=== PATIENT | male | born 1965 | race Caucasian/White ===

== ENCOUNTER 2019-12-07 14:23 | Inpatient (IN) ==
[2019-12-07] MEDS ORDERED: SODIUM CHLORIDE 0.9% 1000ML 1,000 ML IV ONE (14:33)
[2019-12-07] MEDS ORDERED: ONDANSETRON INJ 2 MG/ML 2 ML VIAL IV STA (14:33)
[2019-12-07] MEDS ORDERED: MoRPHine SULFATE 4 MG/ML 1 ML CARP\\VIAL IV STA ×2 (14:33→16:23)
--- NOTE | 2019-12-07 14:48 | Emergency Department Note ---
Impression & Plan Pancreatitis, Abdominal pain, Nausea ED Provider Note Provider: Naresh Dale MD DATE OF SERVICE: 12/07/2019 CHIEF COMPLAINT: Abdominal pain HISTORY OF PRESENT ILLNESS: Patient is a 54-year-old gentleman history of hyperlipidemia, pancreatitis, depression presenting here today onset yesterday of severe epigastric and upper abdominal pain with nausea. Denies vomiting or diarrhea. Denies fever. Denies trauma. Denies other chest pain or shortness of breath. Patient states this feels like a prior episode of pancreatitis. Was drinking alcohol 2 days ago. States he was able to eat a little bit of a sandwich but limited oral intake otherwise. No alcohol since. Pain is severe and does radiate to the back. Does have some pain with palpation of the upper abdomen according to him. REVIEW OF SYSTEMS: A total of 10 review of systems was obtained and negative except as stated above in the HPI. PAST MEDICAL HISTORY: As noted above MEDICATIONS: Reviewed home medication list. SOCIAL HISTORY: Non-smoker. Occasional alcohol PHYSICAL EXAM: GENERAL: alert and oriented appears uncomfortable on stretcher Head: normocephalic and atraumatic EYES: No injection, discharge or icterus. NECK: Trachea midline. Supple. ENT: Mucous membranes pink and moist. LUNGS: Airway patent. No retractions. Breath sounds clear HEART: Regular rate and rhythm. No chest wall tenderness ABDOMEN: Soft with epigastric tenderness. Not peritoneal. No lower abdominal tenderness. No bruising or contusions of the abdominal wall is noted. SKIN: Acyanotic, warm, dry, without rashes EXTREMITIES: Without swelling, tenderness or deformity NEUROLOGICAL: No focal deficits. No aphasia. No facial droop or slurred speech. EK bpm normal sinus rhythm. No PVC. No acute ST segment elevation or depression. Normal QTC. CONTINUOUS CARDIAC MONITORING: was ordered and showed a heart rate of 72 bpm in normal sinus rhythm Patient's hypertension was referred to the hospitalist HOSPITAL COURSE: 1439 Patient was first seen and H&P performed. 1612 Patient reassessed and updated. Patient was having some improvement of pain although it starting to return. Patient's laboratory studies and imaging reviewed. Differential includes Appendicitis, testicular torsion, infections, diverticulitis, UTI, obstruction, mesenteric ischemia, aortic pathology, inflammatory bowel disease, renal colic, PUD, pancreatitis, biliary pathology, hernia, volvulus, constipation, as well as other pathologies. IMPRESSION/MEDICAL DECISION MAKING: Patient presents here epigastric pain radiation back with nausea associated. History of pancreatitis. States feels similar. EKG and troponin were sent as basic labs. Lipase is mildly elevated. CT scan has findings consistent with acute pancreatitis. Also question of possible omental nodule versus infarct. Slight leukocytosis of 12.2 noted but afebrile. No sign of electrolyte abnormality. No evidence of AST or ALT elevation of the bilirubin slightly elevated 2.0. I doubt this is acutely infectious. Treated symptomatically with IV fluids, Zofran, and morphine. Patient had some improvement of symptoms. Discussed with findings. Recommended further observation in the hospital which he was agreeable to. DIAGNOSIS: Acute pancreatitis, nausea, upper abdominal pain DISPOSITION: Hospitalist will evaluate Patient was agreeable with this plan. Past Med/Surg History Social History Smoking Status: Former smoker Preferred Language: Scottish Feels Safe at Home: Yes Allergies Allergies Allergy/AdvReac Type Severity Reaction Status Date / Time cyclobenzaprine AdvReac Mild constipatio Verified 12/07/19 15:24 n Home Meds Home Medications Medication Instructions Recorded Confirmed atorvastatin 20 mg PO DAILY 12/07/19 12/07/19 escitalopram oxalate [Lexapro] 20 mg PO DAILY 12/07/19 12/07/19 lamotrigine [Lamictal] 25 mg PO UD 12/07/19 12/07/19 prednisolone acetate [Pred Forte] 1 drp OPB DAILY 12/07/19 12/07/19 Results & Data (ED) Vital Signs Vital Signs - 24 hr 12/07/19 14:27 12/07/19 15:57 12/07/19 17:06 Temperature 37.2 C Temperature Source Oral Pulse Rate 74 Pulse Rate [Left Finger] 68 63 Respiratory Rate 20 20 20 Respiratory Effort / Characteristics Non-Labored Spontaneous Respiratory Depth Normal Respiratory Pattern Regular Blood Pressure 187/96 H Blood Pressure [Right Arm] 173/88 H 176/92 H Blood Pressure Mean 126 Blood Pressure Mean [Right Arm] 116 120 Pulse Oximetry 97 96 97 Oxygen Delivery Method Room Air Sepsis Recent Fever Within 48 Hours No Sepsis New/Unexplained Change in Mental Status No Sepsis Action Taken by Nursing No Action Required Laboratory Data Result diagrams: 12/07/19 15:00 12/07/19 15:00 Lab Results 08/21/20 08/21/20 08/21/20 Range/Units 15:00 15:00 15:00 WBC 12.20 H (4.8-10.8) K/uL RBC 4.98 (4.7-6.1) M/uL Hgb 15.8 (14.0-18.0) g/dL Hct 45.0 (42-52) % MCV 90.4 (80-100) fL MCH 31.7 (25-34) pg MCHC 35.3 (32-36) g/dL RDW Std Deviation 43.2 (36.4-46.3) fL RDW Coeff of Reginald 13.3 (11.5-14.5) % Plt Count 178 (130-400) K/uL MPV 9.6 (7.4-10.4) fL Immature Gran % (Auto) 0.2 % Neut % (Auto) 77.7 % Lymph % (Auto) 11.7 % [place] % (Auto) 8.8 % Eos % (Auto) 1.4 % Baso % (Auto) 0.2 % Neut # (Auto) 9.48 H (1.4-6.5) K/uL Lymph # (Auto) 1.43 (1.2-3.4) K/uL [place] # (Auto) 1.07 H (0.11-0.59) K/uL Eos # (Auto) 0.17 (0-0.5) K/uL Baso # (Auto) 0.02 (0-0.2) K/uL Immature Gran # (Auto) 0.03 H (0.00-0.02) K/uL PT 11.7 (9.0-12.0) Seconds INR 1.1 (0.9-1.1) APTT 27.4 (21.0-31.0) Seconds PTT Ratio 1.0 Sodium 138 (136-145) mmol/L Potassium 3.7 (3.5-5.1) mmol/L Chloride 104 (98-107) mmol/L Carbon Dioxide 24 (21-32) mmol/L Anion Gap 10.0 (3-11) BUN 15 (7-18) mg/dl Creatinine 1.18 (0.6-1.4) mg/dl Est Cr Clr Drug Dosing 89.0 ml/min Est GFR ( Amer) 81.2 Est GFR (Non-Af Amer) 70.0 BUN/Creatinine Ratio 12.8 (10-20) Glucose 108 H (70-99) mg/dl Calcium 9.7 (8.5-10.1) mg/dl Magnesium 2.3 (1.8-2.4) mg/dl Total Bilirubin 2.0 H (0.2-1) mg/dl Direct Bilirubin 0.4 H (0-0.2) mg/dl AST 26 (15-37) U/L ALT 35 (12-78) U/L Alkaline Phosphatase 115 (45-117) U/L Troponin I < 0.015 (0-0.045) ng/ml Total Protein 7.4 (6.4-8.2) gm/dl Albumin 4.5 (3.4-5.0) gm/dl Globulin 2.9 (2.5-4.0) gm/dl Albumin/Globulin Ratio 1.5 (0.9-2) Lipase 859 H (73-393) U/L Urine Color Urine Appearance (Clear) Urine pH (4.5-7.5) Ur Specific [place] (1.000-1.030) Urine Protein (Negative) Urine Glucose (UA) (Negative) Urine Ketones (Negative) Urine Blood (Negative) Urine Nitrite (Negative) Urine Bilirubin (Negative) Urine Urobilinogen (Negative) Ur Leukocyte Esterase (Negative) 12/07/19 Range/Units 16:02 WBC (4.8-10.8) K/uL RBC (4.7-6.1) M/uL Hgb (14.0-18.0) g/dL Hct (42-52) % MCV (80-100) fL MCH (25-34) pg MCHC (32-36) g/dL RDW Std Deviation (36.4-46.3) fL RDW Coeff of Reginald (11.5-14.5) % Plt Count (130-400) K/uL MPV (7.4-10.4) fL Immature Gran % (Auto) % Neut % (Auto) % Lymph % (Auto) % [place] % (Auto) % Eos % (Auto) % Baso % (Auto) % Neut # (Auto) (1.4-6.5) K/uL Lymph # (Auto) (1.2-3.4) K/uL [place] # (Auto) (0.11-0.59) K/uL Eos # (Auto) (0-0.5) K/uL Baso # (Auto) (0-0.2) K/uL Immature Gran # (Auto) (0.00-0.02) K/uL PT (9.0-12.0) Seconds INR (0.9-1.1) APTT (21.0-31.0) Seconds PTT Ratio Sodium (136-145) mmol/L Potassium (3.5-5.1) mmol/L Chloride (98-107) mmol/L Carbon Dioxide (21-32) mmol/L Anion Gap (3-11) BUN (7-18) mg/dl Creatinine (0.6-1.4) mg/dl Est Cr Clr Drug Dosing ml/min Est GFR ( Amer) Est GFR (Non-Af Amer) BUN/Creatinine Ratio (10-20) Glucose (70-99) mg/dl Calcium (8.5-10.1) mg/dl Magnesium (1.8-2.4) mg/dl Total Bilirubin (0.2-1) mg/dl Direct Bilirubin (0-0.2) mg/dl AST (15-37) U/L ALT (12-78) U/L Alkaline Phosphatase (45-117) U/L Troponin I (0-0.045) ng/ml Total Protein (6.4-8.2) gm/dl Albumin (3.4-5.0) gm/dl Globulin (2.5-4.0) gm/dl Albumin/Globulin Ratio (0.9-2) Lipase (73-393) U/L Urine Color Yellow Urine Appearance Clear (Clear) Urine pH 6.0 (4.5-7.5) Ur Specific [place] 1.027 (1.000-1.030) Urine Protein Negative (Negative) Urine Glucose (UA) Negative (Negative) Urine Ketones 1+ H (Negative) Urine Blood Negative (Negative) Urine Nitrite Negative (Negative) Urine Bilirubin Negative (Negative) Urine Urobilinogen Negative (Negative) Ur Leukocyte Esterase Negative (Negative) Administered Medications Discontinued Medications Sodium Chloride (Nss 1000ml) 1,000 mls @ 999 mls/hr IV .Q1H1M ONE Stop: 12/07/19 15:33 Last Infusion: 12/07/19 17:08 Dose: 0 mls/hr Documented by: [id number] Admin: 12/07/19 15:05 Dose: 999 mls/hr Documented by: [id number] Lactated Ringer's (Lr) 1,000 mls @ 999 mls/hr IV .Q1H1M ONE Stop: 12/07/19 17:23 Last Infusion: 12/07/19 19:23 Dose: 0 mls/hr Documented by: [id number] Admin: 12/07/19 17:04 Dose: 999 mls/hr Documented by: [id number] Ioversol (Ioversol 100ml) 92 ml IV ONCE ONE Stop: 12/07/19 15:47 Last Admin: 12/07/19 15:47 Dose: 92 ml Documented by: [id number] Morphine Sulfate (Morphine Sulfate 4 Mg/Ml 1 Ml Carp\Vial) 4 mg IV NOW STA Stop: 12/07/19 14:34 Last Admin: 12/07/19 15:05 Dose: 4 mg Documented by: [id number] Morphine Sulfate (Morphine Sulfate 4 Mg/Ml 1 Ml Carp\Vial) 4 mg IV NOW STA Stop: 12/07/19 16:24 Last Admin: 12/07/19 17:04 Dose: 4 mg Documented by: [id number] Morphine Sulfate (Morphine Sulfate 2 Mg/Ml Carp) 2 mg IV NOW STA Stop: 12/07/19 17:00 Last Admin: 12/07/19 17:30 Dose: 2 mg Documented by: [id number] Ondansetron HCl (Ondansetron Inj 2 Mg/Ml 2 Ml Vial) 4 mg IV NOW STA Stop: 12/07/19 14:34 Last Admin: 12/07/19 15:05 Dose: 4 mg Documented by: [id number] Discharge Plan Visit Data Chief Complaint: Abdominal Pain Stated Complaint: ABD PAIN ED Provider: Naresh Dale Discharge Problem: Pancreatitis, Abdominal pain, Nausea Patient Disposition: Admitted As Inpatient Discharge Instructions Interventions: ED Discharge Assessment Last Done: 12/07/19 18:19 Discharge Problem: Pancreatitis Qualifiers: Chronicity: acute Pancreatitis type: alcohol induced Acute pancreatitis complication: no infection or necrosis Qualified Code(s): K85.20 - Alcohol induced acute pancreatitis without necrosis or infection Abdominal pain Qualifiers: Abdominal location: upper abdomen, unspecified Qualified Code(s): R10.10 - Upper abdominal pain, unspecified
[2019-12-07 15:16] LABS: Mean Corpuscular Hgb Conc 35.3 g/dL (32-36); Mean Platelet Volume 9.6 fL (7.4-10.4); Platelet Count 178 K/uL (130-400)
[2019-12-07 15:28] LABS: INR 1.1 (0.9-1.1); Partial Thromboplastin Time 27.4 Seconds (21.0-31.0); Prothrombin Time 11.7 Seconds (9.0-12.0)
[2019-12-07 15:31] LABS: Hemoglobin 15.8 g/dL (14.0-18.0); Mean Corpuscular Hemoglobin 31.7 pg (25-34); Mean Corpuscular Volume 90.4 fL (80-100); RDW Coefficient of Variation 13.3 % (11.5-14.5); RDW Standard Deviation 43.2 fL (36.4-46.3); Red Blood Count 4.98 M/uL (4.7-6.1)
[2019-12-07 15:33] LABS: Albumin Level 4.5 gm/dl (3.4-5.0); Aspartate Aminotransferase 26 U/L (15-37); BUN Creatinine Ratio 12.8 (10-20); Blood Urea Nitrogen 15 mg/dl (7-18); Calcium 9.7 mg/dl (8.5-10.1); Carbon Dioxide 24 mmol/L (21-32); Chloride 104 mmol/L (98-107); Est GFR (African American) 81.2; Glucose 108 mg/dl (70-99); Lipase 859 U/L (73-393); Magnesium 2.3 mg/dl (1.8-2.4); Potassium 3.7 mmol/L (3.5-5.1); Sodium 138 mmol/L (136-145)
[2019-12-07 15:37] LABS: Basophils # (auto) 0.02 K/uL (0-0.2); Basophils % (auto) 0.2 %; Eosinophils # (auto) 0.17 K/uL (0-0.5); Eosinophils % (auto) 1.4 %; Immature Granulocytes # (auto) 0.03 K/uL (0.00-0.02); Immature Granulocytes % (auto) 0.2 %; Lymphocytes # (auto) 1.43 K/uL (1.2-3.4); Lymphocytes % (auto) 11.7 %; Monocytes # (auto) 1.07 K/uL (0.11-0.59); Monocytes % (auto) 8.8 %; Neutrophils # (auto) 9.48 K/uL (1.4-6.5); Neutrophils % (auto) 77.7 %
[2019-12-07 15:42] LABS: Alanine Aminotransferase 35 U/L (12-78); Albumin Globulin Ratio 1.5 (0.9-2); Alkaline Phosphatase 115 U/L (45-117); Globulin 2.9 gm/dl (2.5-4.0); Total Protein 7.4 gm/dl (6.4-8.2); Troponin I < 0.015 ng/ml (0-0.045)
[2019-12-07] MEDS ORDERED: IOVERSOL 100ml IV ONE (15:46)
--- NOTE | 2019-12-07 16:02 | CT Scan Report ---
ABDOMEN AND PELVIS CT WITH IV CONTRAST CT DOSE: 673.39 mGy.cm HISTORY: epigastric pain, ?pancreatitis TECHNIQUE: Multiaxial CT images of the abdomen and pelvis were performed following the use of intrave nous contrast. A dose lowering technique was utilized adhering to the principles of ALARA. COMPARISON STUDY: Abdomen and pelvis CT 12/10/2017. FINDINGS: The lung bases are clear. No pneumoperitoneum. No pneumatosis. The liver, spleen, adrenal g lands, and gallbladder are within normal limits. Mild inflammatory change surrounding the pancreatic head. This is consistent with acute pancreatitis. No evidence for pancreatic necrosis at this time. T he main portal vein remains patent. No retroperitoneal lymphadenopathy. Normal caliber abdominal aort a. Punctate bilateral renal calculi. No hydronephrosis. A 6 mm hypodense lesion within the left kidne y. This is too small to characterize but favors a cyst. The bladder is unremarkable. No bowel wall th ickening or obstruction. Normal appendix. Subtle groundglass nodularity along the left side of the om entum best seen on images 209 through 223. This measures up to 9 mm in thickness. IMPRESSION: 1. Above findings consistent with acute pancreatitis involving the pancreatic head. No evidence for n ecrosis at this time. 2. Bilateral nephrolithiasis. No hydronephrosis. 3. Subtle focus of nodularity along the left side of the omentum as described above. This is nonspeci fic and could represent a small focus of fat necrosis or omental infarct. 3 month abdomen and pelvis CT follow-up is recommended to ensure stability/resolution and exclude the less likely possibility of a peritoneal lesion. ACT 112: Negative or not required by law. Electronically signed by: Jayesh Mandujano M.D. 12/07/2019 4:01 PM
[2019-12-07] MEDS ORDERED: LACTATED RINGER'S 1,000 ML IV ONE (16:23)
--- NOTE | 2019-12-07 16:28 | Electrocardiogram Report ---
Test Reason : Blood Pressure : / mmHG Vent. Rate : 063 BPM Atrial Rate : 063 BPM P-R Int : 124 ms QRS Dur : 094 ms QT Int : 424 ms P-R-T Axes : 033 018 044 degrees QTc Int : 433 ms Normal sinus rhythm Normal ECG When compared with ECG of 10-DEC-2017 15:15, No significant change was found Confirmed by Aristides Hayden ([id number]) on 12/07/2019 4:28:22 PM Referred By: REFERRED SELF Confirmed By:Aristides Hayden
[2019-12-07 16:37] LABS: Appearance Urine Clear (Clear); Bilirubin Urine Negative (Negative); Blood Urine Negative (Negative); Color Urine Yellow; Glucose Urine UA Negative (Negative); Ketones Urine 1+ (Negative); Leukocyte Esterase Urine Negative (Negative); Nitrite Urine Negative (Negative); Protein Urine Negative (Negative); Specific Gravity Urine 1.027 (1.000-1.030); Urobilinogen Urine Negative (Negative)
[2019-12-07] MEDS ORDERED: MoRPHine SULFATE 2 MG/ML CARP IV STA (16:59)
[2019-12-07] MEDS ORDERED: ONDANSETRON INJ 2 MG/ML 2 ML VIAL IV PRN (17:00)
[2019-12-07] MEDS ORDERED: ACETAMINOPHEN 1,000 MG/100 ML VIAL IV PRN (17:01)
[2019-12-07] MEDS ORDERED: POLYETHYLENE (MIRALAX) 17 GM PACK PO PRN (17:01)
[2019-12-07] MEDS ORDERED: PROMETHAZINE HCL 6.25 MG in SODIUM CHLORIDE 0.9% 50 ML IV PRN (17:05)
--- NOTE | 2019-12-07 17:05 | History & Physical Report ---
Date of Service December 07, 2019 Assessment & Plan (1) Acute pancreatitis: -64-year-old male with history of hyperlipidemia, pancreatitis, depression presenting to ED with epigastric and upper abdominal pain with nausea that started 1 day ago. Patient reported alcohol use 2 days ago. -admission CT abdomen "FINDINGS: The lung bases are clear. No pneumoperitoneum. No pneumatosis. The liver, spleen, adrenal glands, and gallbladder are within normal limits. Mild inflammatory change surrounding the pancreatic head. This is consistent with acute pancreatitis. No evidence for pancreatic necrosis at this time. The main portal vein remains patent. No retroperitoneal lymphadenopathy. Normal caliber abdominal aorta. Punctate bilateral renal calculi. No hydronephrosis. A 6 mm hypodense lesion within the left kidney. This is too small to characterize but favors a cyst. The bladder is unremarkable. No bowel wall thickening or obstruction. Normal appendix. Subtle groundglass nodularity along the left side of the omentum best seen on images 209 through 223. This measures up to 9 mm in thickness. IMPRESSION: 1. Above findings consistent with acute pancreatitis involving the pancreatic head. No evidence for necrosis at this time. 2. Bilateral nephrolithiasis. No hydronephrosis. 3. Subtle focus of nodularity along the left side of the omentum as described above. This is nonspecific and could represent a small focus of fat necrosis or omental infarct. 3 month abdomen and pelvis CT follow-up is recommended to ensure stability/resolution and exclude the less likely possibility of a peritoneal lesion." -Lipase 859, trend the lipase -continue IV fluids as Lactated Ringer's -patient advised to minimize oral intake for now but can have clear liquid diet if hungry -prn pain medications, senna bowel regimen, prn anti-metics -hold home dose atorvastatin for now history of hyperlipidemia -hold home dose atorvastatin for now while on minimal diet Depression -continue home dose Lexapro Fuchs' corneal dystrophy -continue patient's eye drops of prednisolone DVT prophylaxis: SCDs, ambulation Full Code Status History of Present Illness 64-year-old male with history of hyperlipidemia, pancreatitis, depression presenting to ED with epigastric and upper abdominal pain with nausea that started 1 day ago. Patient reported alcohol use 2 days ago. Patient denies fevers, or vomiting. no chest pain. no shortness of breath. breathing on room air. no dizziness. he denies problems with bowel movements or urination on exam by hospitalist pain appears to be mostly right upper quadrant but CT abdomen imaging not showing gallbladder etiology Family History: patient reports family history of vision problems Primary Care Provider: Brady Palafox MD Allergies Allergy/AdvReac Type Severity Reaction Status Date / Time cyclobenzaprine AdvReac Mild constipatio Verified 12/07/19 15:24 n Home Medications Home Medications Medication Instructions Recorded Confirmed Type atorvastatin 20 mg PO DAILY 12/07/19 12/07/19 History escitalopram oxalate [Lexapro] 20 mg PO DAILY 12/07/19 12/07/19 History lamotrigine [Lamictal] 25 mg PO UD 12/07/19 12/07/19 History prednisolone acetate [Pred Forte] 1 drp OPB DAILY 12/07/19 12/07/19 History Past Med/Surg History Social History Smoking Status: Former smoker Preferred Language: Swazi Feels Safe at Home: Yes Review of Systems Review of Systems: All systems reviewed & are unremarkable except as noted in Subjective Physical Exam Constitutional: cooperative Eyes: PERRL, conjunctivae normal, anicteric sclerae EOM intact bilaterally ENMT: external ear and nose normal, oropharynx normal Neck: trachea midline, no thyromegaly normal visual inspection Respiratory: normal respiratory effort, lungs clear to auscultation normal respiratory effort Cardiovascular: Rate/Rhythm: regular rhythm and + bradycardic Gastrointestinal (Abdomen): Inspection/Auscultation: normal bowel sounds Percussion/Palpation: + abdomen tender (right upper quadrant) and abdomen soft Musculoskeletal: Head/Neck/Chest: normocephalic and head atraumatic Neurologic: PERRL, EOMI, accommodation nl, no face palsy, no dysarthria CN's II-XI intact bilaterally Psychiatric: A+Ox3, euthymic affect Results & Data Results & Data ([facility]) Vital Signs (Past 12 Hours) Vital Signs Temp Pulse Pulse Resp BP BP Pulse Ox 12/07/19 15:57 68 20 173/88 H 96 12/07/19 14:27 37.2 C 74 20 187/96 H 97
[2019-12-07 17:41] LABS: Bilirubin Direct 0.4 mg/dl (0-0.2)
[2019-12-07] MEDS: HYDROmorphone INJ 0.5 MG/0.5 ML SYR IV PRN (19:49)
[2019-12-07] MEDS: LACTATED RINGER'S 1,000 ML IV SCH (19:50)
[2019-12-07] MEDS: OXYCODONE HCL IR 5 MG TAB (IMMEDIATE RELEASE) PO PRN (22:06)
[2019-12-08] MEDS: HYDROmorphone INJ 0.5 MG/0.5 ML SYR IV PRN ×4 (01:36→23:41)
[2019-12-08] MEDS: LACTATED RINGER'S 1,000 ML IV SCH ×5 (02:37→18:32)
[2019-12-08] MEDS: OXYCODONE HCL IR 5 MG TAB (IMMEDIATE RELEASE) PO PRN ×3 (04:55→19:56)
[2019-12-08] MEDS: SENNA 8.6 MG TAB PO SCH (07:43)
[2019-12-08] MEDS: prednisoLONE acetate 1% OP SUSP 5 ML BTL OPB SCH (07:43)
[2019-12-08] MEDS: ESCITALOPRAM OXALATE 20 MG TAB PO SCH (07:43)
[2019-12-08] MEDS: TRAMADOL HCL 50 MG TABLET PO PRN ×2 (10:11→18:09)
[2019-12-08 10:19] LABS: Basophils # (auto) 0.01 K/uL (0-0.2); Basophils % (auto) 0.1 %; Eosinophils # (auto) 0.37 K/uL (0-0.5); Eosinophils % (auto) 3.8 %; Hematocrit (blood only) 42.1 % (42-52); Hemoglobin 14.2 g/dL (14.0-18.0); Immature Granulocytes # (auto) 0.02 K/uL (0.00-0.02); Immature Granulocytes % (auto) 0.2 %; Lymphocytes # (auto) 1.31 K/uL (1.2-3.4); Lymphocytes % (auto) 13.6 %; Mean Corpuscular Hemoglobin 31.8 pg (25-34); Mean Corpuscular Hgb Conc 33.7 g/dL (32-36); Mean Corpuscular Volume 94.4 fL (80-100); Mean Platelet Volume 9.7 fL (7.4-10.4); Monocytes # (auto) 0.85 K/uL (0.11-0.59); Monocytes % (auto) 8.8 %; Neutrophils # (auto) 7.08 K/uL (1.4-6.5); Neutrophils % (auto) 73.5 %; Platelet Count 149 K/uL (130-400); RDW Coefficient of Variation 13.8 % (11.5-14.5); Red Blood Count 4.46 M/uL (4.7-6.1); White Blood Count 9.64 K/uL (4.8-10.8)
--- NOTE | 2019-12-08 10:39 | Hospitalist Progress Note ---
Date of Service December 08, 2019 Assessment & Plan (1) Acute pancreatitis: -64-year-old male with history of hyperlipidemia, pancreatitis, depression presenting to ED with epigastric and upper abdominal pain with nausea that started 1 day ago. Patient reported alcohol use 2 days ago. -admission CT abdomen "FINDINGS: The lung bases are clear. No pneumoperitoneum. No pneumatosis. The liver, spleen, adrenal glands, and gallbladder are within normal limits. Mild inflammatory change surrounding the pancreatic head. This is consistent with acute pancreatitis. No evidence for pancreatic necrosis at this time. The main portal vein remains patent. No retroperitoneal lymphadenopathy. Normal caliber abdominal aorta. Punctate bilateral renal calculi. No hydronephrosis. A 6 mm hypodense lesion within the left kidney. This is too small to characterize but favors a cyst. The bladder is unremarkable. No bowel wall thickening or obstruction. Normal appendix. Subtle groundglass nodularity along the left side of the omentum best seen on images 209 through 223. This measures up to 9 mm in thickness. IMPRESSION: 1. Above findings consistent with acute pancreatitis involving the pancreatic head. No evidence for necrosis at this time. 2. Bilateral nephrolithiasis. No hydronephrosis. 3. Subtle focus of nodularity along the left side of the omentum as described above. This is nonspecific and could represent a small focus of fat necrosis or omental infarct. 3 month abdomen and pelvis CT follow-up is recommended to ensure stability/resolution and exclude the less likely possibility of a peritoneal lesion." -Lipase 859 on admission, normal alkaline phosphatase, trend the lipase and bilirubin -continue IV fluids as Lactated Ringer's -patient advised to minimize oral intake for now but can have clear liquid diet if hungry -prn pain medications, senna bowel regimen, prn anti-metics -hold home dose atorvastatin for now - updates: Patient able to tolerate the liquid diet. continues to have abdominal discomforts. primarily right upper quadrant. no vomiting. no fevers overnight. White blood cell count normalized from 12,000 on admission to 9,000 by AM of 12/08/2019 while on IV fluids of Lactated Ringers at 125 ml/hr. breathing on room air. no shortness of breath. Patient instructed to let nurse know if trouble with breathing or if urinating excessively so that IV fluids to be turn off or cut back. Patient agrees for further treatment of symptoms in the hospital. He is ambulating. no dizziness. no headache history of hyperlipidemia -hold home dose atorvastatin for now while on minimal diet Depression -continue home dose Lexapro Fuchs' corneal dystrophy -continue patient's eye drops of prednisolone DVT prophylaxis: SCDs, ambulation Full Code Status Admission and Anticipated Discharge Date Admission Date: December 07, 2019 Subjective Patient able to tolerate the liquid diet. continues to have abdominal discomforts. primarily right upper quadrant. no vomiting. no fevers overnight. White blood cell count normalized from 12,000 on admission to 9,000 by AM of 12/08/2019 while on IV fluids of Lactated Ringers at 125 ml/hr. breathing on room air. no shortness of breath. Patient instructed to let nurse know if trouble with breathing or if urinating excessively so that IV fluids to be turn off or cut back. Patient agrees for further treatment of symptoms in the hospital. He is ambulating. no dizziness. no headache Review of Systems Review of Systems: All systems reviewed & are unremarkable except as noted in Subjective Physical Exam Constitutional: cooperative Eyes: PERRL, conjunctivae normal, anicteric sclerae EOM intact bilaterally ENMT: external ear and nose normal, oropharynx normal Neck: trachea midline, no thyromegaly normal visual inspection Respiratory: normal respiratory effort, lungs clear to auscultation normal respiratory effort Cardiovascular: Rate/Rhythm: regular rhythm and + bradycardic Gastrointestinal (Abdomen): Inspection/Auscultation: normal bowel sounds Percussion/Palpation: + abdomen tender (right upper quadrant) and abdomen soft Musculoskeletal: Head/Neck/Chest: normocephalic and head atraumatic Neurologic: PERRL, EOMI, accommodation nl, no face palsy, no dysarthria CN's II-XI intact bilaterally Psychiatric: A+Ox3, euthymic affect Results & Data Results & Data ([facility]) Vital Signs (Past 12 Hours) Vital Signs Temp Pulse Resp BP Pulse Ox 12/07/19 23:42 36.8 C 57 L 16 177/87 H 97
[2019-12-08 10:53] LABS: Albumin Globulin Ratio 1.3 (0.9-2); Albumin Level 3.6 gm/dl (3.4-5.0); BUN Creatinine Ratio 8.4 (10-20); Bilirubin Direct 0.2 mg/dl (0-0.2); Calcium 8.8 mg/dl (8.5-10.1); Creatinine Clr Calc Pharmacy 97.4 ml/min; Est GFR (African American) 90.3; Est GFR (Non-African American) 77.9; Globulin 2.8 gm/dl (2.5-4.0); Potassium 3.8 mmol/L (3.5-5.1); Total Protein 6.4 gm/dl (6.4-8.2)
[2019-12-08 17:49] LABS: Albumin Level 3.7 gm/dl (3.4-5.0); Calcium 8.8 mg/dl (8.5-10.1); Creatinine Clr Calc Pharmacy 100.2 ml/min; Est GFR (African American) 93.5; Est GFR (Non-African American) 80.7; Potassium 3.6 mmol/L (3.5-5.1)
[2019-12-08 17:53] LABS: Albumin Globulin Ratio 1.3 (0.9-2); Globulin 2.9 gm/dl (2.5-4.0); Total Protein 6.6 gm/dl (6.4-8.2)
[2019-12-09] MEDS: LACTATED RINGER'S 1,000 ML IV SCH (05:49)
[2019-12-09 06:05] LABS: Basophils # (auto) 0.02 K/uL (0-0.2); Basophils % (auto) 0.3 %; Eosinophils # (auto) 0.42 K/uL (0-0.5); Eosinophils % (auto) 5.3 %; Hematocrit (blood only) 39.7 % (42-52); Hemoglobin 13.5 g/dL (14.0-18.0); Immature Granulocytes # (auto) 0.01 K/uL (0.00-0.02); Immature Granulocytes % (auto) 0.1 %; Lymphocytes # (auto) 1.85 K/uL (1.2-3.4); Lymphocytes % (auto) 23.1 %; Mean Corpuscular Hemoglobin 32.3 pg (25-34); Mean Platelet Volume 9.8 fL (7.4-10.4); Monocytes # (auto) 0.81 K/uL (0.11-0.59); Monocytes % (auto) 10.1 %; Neutrophils # (auto) 4.89 K/uL (1.4-6.5); Neutrophils % (auto) 61.1 %; Platelet Count 129 K/uL (130-400); RDW Coefficient of Variation 13.7 % (11.5-14.5); Red Blood Count 4.18 M/uL (4.7-6.1)
[2019-12-09 06:45] LABS: Albumin Level 3.3 gm/dl (3.4-5.0); BUN Creatinine Ratio 6.6 (10-20); Calcium 8.5 mg/dl (8.5-10.1); Creatinine Clr Calc Pharmacy 115.6 ml/min; Est GFR (African American) 111.1; Est GFR (Non-African American) 95.9; Potassium 3.6 mmol/L (3.5-5.1)
[2019-12-09 06:47] LABS: Albumin Globulin Ratio 1.1 (0.9-2); Globulin 2.9 gm/dl (2.5-4.0); Total Protein 6.2 gm/dl (6.4-8.2)
[2019-12-09] MEDS: SENNA 8.6 MG TAB PO SCH (07:32)
[2019-12-09] MEDS: ESCITALOPRAM OXALATE 20 MG TAB PO SCH (07:32)
[2019-12-09] MEDS: prednisoLONE acetate 1% OP SUSP 5 ML BTL OPB SCH (07:33)
--- NOTE | 2019-12-09 07:38 | Hospitalist Progress Note ---
Date of Service December 09, 2019 Assessment & Plan (1) Acute pancreatitis: -64-year-old male with history of hyperlipidemia, pancreatitis, depression presenting to ED with epigastric and upper abdominal pain with nausea that started 1 day ago. Patient reported alcohol use 2 days ago. -admission CT abdomen "FINDINGS: The lung bases are clear. No pneumoperitoneum. No pneumatosis. The liver, spleen, adrenal glands, and gallbladder are within normal limits. Mild inflammatory change surrounding the pancreatic head. This is consistent with acute pancreatitis. No evidence for pancreatic necrosis at this time. The main portal vein remains patent. No retroperitoneal lymphadenopathy. Normal caliber abdominal aorta. Punctate bilateral renal calculi. No hydronephrosis. A 6 mm hypodense lesion within the left kidney. This is too small to characterize but favors a cyst. The bladder is unremarkable. No bowel wall thickening or obstruction. Normal appendix. Subtle groundglass nodularity along the left side of the omentum best seen on images 209 through 223. This measures up to 9 mm in thickness. IMPRESSION: 1. Above findings consistent with acute pancreatitis involving the pancreatic head. No evidence for necrosis at this time. 2. Bilateral nephrolithiasis. No hydronephrosis. 3. Subtle focus of nodularity along the left side of the omentum as described above. This is nonspecific and could represent a small focus of fat necrosis or omental infarct. 3 month abdomen and pelvis CT follow-up is recommended to ensure stability/resolution and exclude the less likely possibility of a peritoneal lesion." -Lipase 859 on admission, normal alkaline phosphatase, was started on on IV fluids as Lactated Ringer's from admission -patient advised to minimize oral intake for now but can have clear liquid diet if hungry -was given prn pain medications, senna bowel regimen, prn anti-metics -12/08/2019 updates: Patient able to tolerate the liquid diet. continues to have abdominal discomforts. primarily right upper quadrant. no vomiting. no fevers overnight. White blood cell count normalized from 12,000 on admission to 9,000 by AM of 12/08/2019 while on IV fluids of Lactated Ringers at 125 ml/hr. breathing on room air. no shortness of breath. Patient instructed to let nurse know if trouble with breathing or if urinating excessively so that IV fluids to be turn off or cut back. Patient agrees for further treatment of symptoms in the hospital. He is ambulating. no dizziness. no headache -12/09/2019 updates: Patient seen on examined in AM. The abdomen pain has improved significantly and no grimacing on palpation of abdomen. The amylase and lipase labs have normalized. The IV fluids are stopped and patient given additional bowel regimen because of constipation. Patient does report that his bowel sounds are more active and feels that he may be ready to make bowel movements. Diet advanced. Patient denies nausea. Patient urinating without problems. No fevers. No other symptoms. We discuss his preference for discharge to home today if he remains feeling improved. We discussed discharge instructions and follow ups at length -Patient should avoid alcohol Patient should have low fat diet Patient should make a follow up to primary care doctor and bring to doctor the admission CT imaging scan which is burn onto a CD for future followup to rule out any lesions, radiology recommended 3 month follow up abdomen and pelvis CT Constipation -patient given additional bowel regimen to help him make the bowel movements -additional bowel regimen to be sent electronically as prescription to his pharmacy of [facility] history of hyperlipidemia -hold home dose atorvastatin for now because of recent decrease in the diet but this can be resumed when discharged Depression -continue home dose Lexapro Fuchs' corneal dystrophy -continue patient's eye drops of prednisolone Full Code Status Admission and Anticipated Discharge Date Admission Date: December 07, 2019 Subjective Patient seen on examined in AM. The abdomen pain has improved significantly and no grimacing on palpation of abdomen. The amylase and lipase labs have normalized. The IV fluids are stopped and patient given additional bowel regimen because of constipation. Patient does report that his bowel sounds are more active and feels that he may be ready to make bowel movements. Diet advanced. Patient denies nausea. Patient urinating without problems. No fevers. No other symptoms. We discuss his preference for discharge to home today if he remains feeling improved. We discussed discharge instructions and follow ups at length Review of Systems Review of Systems: All systems reviewed & are unremarkable except as noted in Subjective Physical Exam Constitutional: cooperative Eyes: PERRL, conjunctivae normal, anicteric sclerae EOM intact bilaterally ENMT: external ear and nose normal, oropharynx normal Neck: trachea midline, no thyromegaly normal visual inspection Respiratory: normal respiratory effort, lungs clear to auscultation normal respiratory effort Cardiovascular: Rate/Rhythm: regular rhythm and + bradycardic Gastrointestinal (Abdomen): Inspection/Auscultation: normal bowel sounds Percussion/Palpation: + abdomen tender (right upper quadrant) and abdomen soft Musculoskeletal: Head/Neck/Chest: normocephalic and head atraumatic Neurologic: PERRL, EOMI, accommodation nl, no face palsy, no dysarthria CN's II-XI intact bilaterally Psychiatric: A+Ox3, euthymic affect Results & Data Results & Data ([facility]) Vital Signs (Past 12 Hours) Vital Signs Temp Pulse Resp BP Pulse Ox 12/09/19 06:56 37 C 60 16 130/70 98 12/08/19 23:40 36.6 C 57 L 20 148/74 H 97
[2019-12-09] MEDS ORDERED: POLYETHYLENE (MIRALAX) 17 GM PACK PO ONE (08:00)
[2019-12-09] MEDS ORDERED: SENNA 8.6 MG TAB PO ONE (08:00)
--- NOTE | 2019-12-09 08:03 | Discharge Summary ---
Date of Service December 09, 2019 Admission HPI Per Admitting Provider 64-year-old male with history of hyperlipidemia, pancreatitis, depression presenting to ED with epigastric and upper abdominal pain with nausea that started 1 day ago. Patient reported alcohol use 2 days ago. Patient denies fevers, or vomiting. no chest pain. no shortness of breath. breathing on room air. no dizziness. he denies problems with bowel movements or urination on exam by hospitalist pain appears to be mostly right upper quadrant but CT abdomen imaging not showing gallbladder etiology Family History: patient reports family history of vision problems Principal Diagnosis Acute pancreatitis Constipation Discharge Exam Constitutional cooperative Eyes PERRL, conjunctivae normal, anicteric sclerae EOM intact bilaterally ENMT external ear and nose normal, oropharynx normal Neck trachea midline, no thyromegaly normal visual inspection Respiratory normal respiratory effort, lungs clear to auscultation normal respiratory effort Cardiovascular Rate/Rhythm: regular rhythm and + bradycardic Gastrointestinal (Abdomen) Inspection/Auscultation: normal bowel sounds Percussion/Palpation: abdomen soft Musculoskeletal Head/Neck/Chest: normocephalic and head atraumatic Neurologic PERRL, EOMI, accommodation nl, no face palsy, no dysarthria CN's II-XI intact bilaterally Psychiatric A+Ox3, euthymic affect Discharge Data Allergies Allergy/AdvReac Type Severity Reaction Status Date / Time cyclobenzaprine AdvReac Mild constipatio Verified 12/07/19 15:24 n Consultations 12/07/19 16:49 ED Decision to Admit Stat 12/09/19 07:44 Burn CD for patient Stat Ordered Studies 12/07/19 14:33 CT abd pelvis IV con only Stat Hospital Course (1) Acute pancreatitis: -64-year-old male with history of hyperlipidemia, pancreatitis, depression presenting to ED with epigastric and upper abdominal pain with nausea that started 1 day ago. Patient reported alcohol use 2 days ago. -admission CT abdomen "FINDINGS: The lung bases are clear. No pneumoperitoneum. No pneumatosis. The liver, spleen, adrenal glands, and gallbladder are within normal limits. Mild inflammatory change surrounding the pancreatic head. This is consistent with acute pancreatitis. No evidence for pancreatic necrosis at this time. The main portal vein remains patent. No retroperitoneal lymphadenopathy. Normal caliber abdominal aorta. Punctate bilateral renal calculi. No hydronephrosis. A 6 mm hypodense lesion within the left kidney. This is too small to characterize but favors a cyst. The bladder is unremarkable. No bowel wall thickening or obstruction. Normal appendix. Subtle groundglass nodularity along the left side of the omentum best seen on images 209 through 223. This measures up to 9 mm in thickness. IMPRESSION: 1. Above findings consistent with acute pancreatitis involving the pancreatic head. No evidence for necrosis at this time. 2. Bilateral nephrolithiasis. No hydronephrosis. 3. Subtle focus of nodularity along the left side of the omentum as described above. This is nonspecific and could represent a small focus of fat necrosis or omental infarct. 3 month abdomen and pelvis CT follow-up is recommended to ensure stability/resolution and exclude the less likely possibility of a peritoneal lesion." -Lipase 859 on admission, normal alkaline phosphatase, was started on on IV fl uids as Lactated Ringer's from admission -patient advised to minimize oral intake for now but can have clear liquid diet if hungry -was given prn pain medications, senna bowel regimen, prn anti-metics -12/08/2019 updates: Patient able to tolerate the liquid diet. continues to have abdominal discomforts. primarily right upper quadrant. no vomiting. no fevers overnight. White blood cell count normalized from 12,000 on admission to 9,000 by AM of 12/08/2019 while on IV fluids of Lactated Ringers at 125 ml/hr. breathing on room air. no shortness of breath. Patient instructed to let nurse know if trouble with breathing or if urinating excessively so that IV fluids to be turn off or cut back. Patient agrees for further treatment of symptoms in the hospital. He is ambulating. no dizziness. no headache -12/09/2019 updates: Patient seen on examined in AM. The abdomen pain has improved significantly and no grimacing on palpation of abdomen. The amylase and lipase labs have normalized. The IV fluids are stopped and patient given additional bowel regimen because of constipation. Patient does report that his bowel sounds are more active and feels that he may be ready to make bowel movements. Diet advanced. Patient denies nausea. Patient urinating without problems. No fevers. No other symptoms. We discuss his preference for discharge to home today if he remains feeling improved. We discussed discharge instructions and follow ups at length -Patient should avoid alcohol Patient should have low fat diet Patient should make a follow up to primary care doctor and bring to doctor the admission CT imaging scan which is burn onto a CD for future followup to rule out any lesions, radiology recommended 3 month follow up abdomen and pelvis CT Constipation -patient given additional bowel regimen to help him make the bowel movements -additional bowel regimen to be sent electronically as prescription to his pharmacy of [facility] on [facility] history of hyperlipidemia -hold home dose atorvastatin for now because of recent decrease in the diet but this can be resumed when discharged Depression -continue home dose Lexapro Fuchs' corneal dystrophy -continue patient's eye drops of prednisolone Full Code Status Total Time Total Time Spent Total Time Spent (In Minutes): 40 minutes Total Time Includes: Examination of the Patient, Discharge Planning, Medication Reconciliation and Communication With Other Providers Discharge Plan Discharge Items Patient Disposition: Home - Self-Care Reason For Visit: ACUTE PANCREATITIS Discharge Diagnosis: Acute pancreatitis Constipation Condition on Discharge: Good Activity: Resume your previous activity Non-emergency contact: Primary Care Provider Call non-emergency contact if: you have any medication questions Follow-up/Referrals: Brady Palafox MD [Primary Care Provider] - Diet: Low Fat Addtl Attending Provider Instructions: Patient should avoid alcohol Patient should have low fat diet Patient should make a follow up to primary care doctor and bring to doctor the admission CT imaging scan which is burn onto a CD for future followup to rule out any lesions, radiology recommended 3 month follow up abdomen and pelvis CT additional bowel regimen to be sent electronically as prescription to his pharmacy of [facility] on [facility] [employer]tl [employer] Provider Instructions: CT abdomen on admission 12/07/2019 FINDINGS: The lung bases are clear. No pneumoperitoneum. No pneumatosis. The liver, spleen, adrenal glands, and gallbladder are within normal limits. Mild inflammatory change surrounding the pancreatic head. This is consistent with acute pancreatitis. No evidence for pancreatic necrosis at this time. The main portal vein remains patent. No retroperitoneal lymphadenopathy. Normal caliber abdominal aorta. Punctate bilateral renal calculi. No hydronephrosis. A 6 mm hypodense lesion within the left kidney. This is too small to characterize but favors a cyst. The bladder is unremarkable. No bowel wall thickening or obstruction. Normal appendix. Subtle groundglass nodularity along the left side of the omentum best seen on images 209 through 223. This measures up to 9 mm in thickness. IMPRESSION: 1. Above findings consistent with acute pancreatitis involving the pancreatic head. No evidence for necrosis at this time. 2. Bilateral nephrolithiasis. No hydronephrosis. 3. Subtle focus of nodularity along the left side of the omentum as described above. This is nonspecific and could represent a small focus of fat necrosis or omental infarct. 3 month abdomen and pelvis CT follow-up is recommended to ensure stability/resolution and exclude the less likely possibility of a peritoneal lesion. Pending Studies at Discharge: No Stand-Alone Forms: [facility] [employer], Smoking Cessation Medications and DC Order Prescriptions: New sennosides [Senokot] 8.6 mg Tablet 8.6 mg PO QAM 30 Days Qty: 30 RF: 0 polyethylene glycol 3350 [Miralax] 17 gram Powder In Packet 17 g PO DAILY PRN (Reason: constipation) 30 Days Qty: 30 RF: 0 acetaminophen 325 mg tablet 325 mg PO Q6H PRN (Reason: fever or pain) 5 Days Qty: 20 RF: 0 Continued atorvastatin 20 mg Tablet 20 mg PO DAILY RF: 0 lamotrigine [Lamictal] 25 mg tablet 25 mg PO UD RF: 0 escitalopram oxalate [Lexapro] 20 mg tablet 20 mg PO DAILY RF: 0 prednisolone acetate [Pred Forte] 1 % drops,suspension 1 drp OPB DAILY RF: 0 Discharge Orders: Discharge Order (Routine); Ordered 12/09/19 Ordered By: Juanito Edwards Admission Data Admit Date/Time: 12/07/19 17:08 Attending Provider: Juanito Edwards Admit Provider: Juanito Edwards Primary Care Provider: Brady Palafox Other Providers: Juanito Edwards
== END 2019-12-09 13:35 | disposition home or self-care (01) | DRG 440 ==
LOC: ED 14:23 → 3W 17:08

== ENCOUNTER 2021-01-31 17:43 | Observation (INO) ==
[2021-01-31 19:18] LABS: Appearance Urine Clear (Clear); Bacteria Urine Automated Negative (Negative); Bilirubin Urine Negative (Negative); Blood Urine Trace (Negative); Color Urine Yellow; Glucose Urine UA Negative (Negative); Ketones Urine 2+ (Negative); Leukocyte Esterase Urine Negative (Negative); Nitrite Urine Negative (Negative); Protein Urine Negative (Negative); RBC Urine Automated 0-4 /hpf (0-4); Specific Gravity Urine 1.014 (1.000-1.030); Urobilinogen Urine Negative (Negative); pH Urine 5.5 (4.5-7.5)
[2021-01-31 19:28] LABS: Basophils # (auto) 0.03 K/uL (0-0.2); Basophils % (auto) 0.2 %; Eosinophils # (auto) 0.83 K/uL (0-0.5); Eosinophils % (auto) 6.2 %; Hematocrit (blood only) 45.3 % (42-52); Hemoglobin 15.8 g/dL (14.0-18.0); Immature Granulocytes # (auto) 0.05 K/uL (0.00-0.02); Immature Granulocytes % (auto) 0.4 %; Lymphocytes # (auto) 1.43 K/uL (1.2-3.4); Lymphocytes % (auto) 10.7 %; Mean Corpuscular Hemoglobin 32.2 pg (25-34); Mean Corpuscular Hgb Conc 34.9 g/dL (32-36); Mean Corpuscular Volume 92.3 fL (80-100); Mean Platelet Volume 9.4 fL (7.4-10.4); Monocytes # (auto) 0.76 K/uL (0.11-0.59); Monocytes % (auto) 5.7 %; Neutrophils # (auto) 10.22 K/uL (1.4-6.5); Neutrophils % (auto) 76.8 %; Platelet Count 170 K/uL (130-400); RDW Coefficient of Variation 12.6 % (11.5-14.5); RDW Standard Deviation 42.6 fL (36.4-46.3); Red Blood Count 4.91 M/uL (4.7-6.1); White Blood Count 13.32 K/uL (4.8-10.8)
[2021-01-31 19:47] LABS: Albumin Level 4.6 gm/dl (3.4-5.0); BUN Creatinine Ratio 7.1 (10-20); Calcium 9.3 mg/dl (8.5-10.1); Creatinine Clr Calc Pharmacy 83.7 ml/min; Est GFR (African American) 73.7 ml/min; Est GFR (Non-African American) 63.6 ml/min; Potassium 3.7 mmol/L (3.5-5.1)
[2021-01-31 19:50] LABS: Albumin Globulin Ratio 1.5 (0.9-2); Bilirubin,Total 1.4 mg/dl (0.2-1); Globulin 3.2 gm/dl (2.5-4.0); Total Protein 7.8 gm/dl (6.4-8.2)
[2021-01-31] MEDS ORDERED: SODIUM CHLORIDE 0.9% 1000ML 1,000 ML IV ONE (20:00)
[2021-01-31] MEDS ORDERED: MoRPHine SULFATE 10 MG/ML CARP/VIAL IV STA ×2 (20:00→22:29)
[2021-01-31] MEDS ORDERED: ONDANSETRON INJ 2 MG/ML 2 ML VIAL IV STA (20:00)
--- NOTE | 2021-01-31 20:03 | Emergency Department Note ---
Impression & Plan Abdominal pain, Pancreatitis ED Provider Note NAME: JACKIE SORTO AGE: 55 SEX: M : 1965 ARRIVES VIA: Walk-In INFORMANT: Patient ED PROVIDER(S): Fabiano Alvarado DO CHIEF COMPLAINT: Abdominal pain HPI: Patient is a 55-year-old male who presents to the ER for periumbilical abdominal pain. Patient notes that he drank this past weekend and then he started to have some dull abdominal pain. is when the pain started getting worse. He stopped eating. He is drinking a little bit. Pain has been progressing. It is a 10 out of 10. Radiates around the left side into the back. Consistent with previous bouts of pancreatitis. He has had this 2-3 times before. He admits it is secondary to alcohol. Denies any gallbladder issues. No headache or change in vision. No chest pain or shortness of breath. No dysuria urgency or frequency. No other exacerbating or remitting factors. ROS: See above HPI for pertinent positives & negatives. A total of 10 systems reviewed and were otherwise negative. PAST MEDICAL HISTORY:See Below PAST SURGICAL HISTORY:See Below FAMILY HISTORY:See Below SOCIAL HISTORY:See Below HOME MEDICATIONS:See Below ALLERGIES:See Below VITALS:See Below PHYSICAL EXAMINATION: GENERAL: Sitting up in bed, alert, moderate distress holding abdomen EYE EXAM: normal conjunctiva. OROPHARYNX: no exudate, no erythema, lips, buccal mucosa, and tongue normal and mucous membranes are moist NECK: supple, no nuchal rigidity, no adenopathy, non-tender LUNGS: Clear to auscultation. Normal chest wall mechanics HEART: no murmurs, S1 normal and S2 normal ABDOMEN: abdomen soft, tender periumbilically, normo-active bowel sounds, no m asses, no rebound or guarding. UPPER EXTREMITIES: upper extremities are grossly normal. LOWER EXTREMITIES: No pitting edema. NEURO EXAM: Normal sensorium, cranial nerves II-XII grossly intact, normal speech, no gross weakness of arms, no gross weakness of legs. MEDICAL DECISION MAKING: Patient is a 55-year-old male who presents ER for the above-stated complaint. I V was established blood work was obtained. History of pancreatitis and this feels similar. Labs show a mild leukocytosis of 13,000. No significant anemia. BMP with LFTs bilirubin was unremarkable. Lipase of just under thousand. UA was clean. Covid negative. CT abdomen pelvis showed pancreatitis. He was updated bedside. He was given IV fluids Zofran and repeat dose of narcotics. Discussed with hospitalist for further evaluation. Triage Nursing notes reviewed. Limited review of prior medical records performed Vital Signs: reviewed and remarkable for HTN Differential diagnosis: Differential diagnoses includes but is not limited to gastritis, peptic ulcer disease, GERD, gallbladder disease, pancreatitis, small bowel obstruction, acute coronary syndrome, pericarditis, ischemic bowel, irritable bowel disease, irritable bowel syndrome, appendicitis, diverticulitis, malignancy, hernia, urinary tract infection, torsion, perforation, trauma, infectious. ER treatment provided: See below Diagnostics interpreted by me: ECG: none Cardiac Monitoring: An order was placed for continuous cardiac monitoring. The monitor shows a rate of 82 with sinus rhythm. Laboratory studies: As stated above and show below. Imaging studies: CT abdomen pelvis shows acute pancreatitis Consultation(s): Discussed with hospitalist for further evaluation Procedures: none Critical Care: None Past Med/Surg History Medical History Acute pancreatitis Depression Fuchs' corneal dystrophy History of multiple concussions HLD (hyperlipidemia) Surgical History No significant past surgical history Social History Smoking Status: Never smoker Tobacco Type: Cigarettes Hx Alcohol Use: Yes Alcohol type: beer Hx Substance Use: No Preferred Language: Gabonese Shake Table Operator Required: No Beliefs That Will Affect Care: None Current Living Situation: Spouse Feels Safe at Home: Yes Assistive Devices: Glasses Allergies Allergies Allergy/AdvReac Type Severity Reaction Status Date / Time cyclobenzaprine AdvReac Mild constipatio Verified 01/31/21 20:19 n Home Meds Home Medications Medication Instructions Recorded Confirmed atorvastatin 20 mg tablet 20 mg PO DAILY 12/07/19 01/31/21 escitalopram oxalate 20 mg tablet 20 mg PO DAILY 12/07/19 01/31/21 (Lexapro) lamotrigine 100 mg tablet 100 mg PO BID 01/31/21 01/31/21 Results & Data (ED) Vital Signs Vital Signs - 24 hr 01/31/21 18:04 01/31/21 20:30 01/31/21 21:00 Temperature 36.6 C Temperature Source Temporal Artery Scan Pulse Rate 70 67 67 Pulse Rate from SpO2 Sensor Pulse Rhythm Regular Pulse Strength Normal Respiratory Rate 18 21 Respiratory Effort / Characteristics Non-Labored Spontaneous Respiratory Depth Normal Respiratory Pattern Regular Blood Pressure 166/107 H 166/82 H 175/86 H Blood Pressure Mean 126 110 115 Pulse Oximetry 98 90 94 Oxygen Delivery Method Room Air Sepsis Recent Fever Within 48 Hours No Sepsis New/Unexplained Change in Mental Status No Sepsis Action Taken by Nursing No Action Required 01/31/21 21:30 01/31/21 22:30 01/31/21 23:00 Temperature Temperature Source Pulse Rate 66 65 62 Pulse Rate from SpO2 Sensor 63 Pulse Rhythm Pulse Strength Respiratory Rate 17 16 16 Respiratory Effort / Characteristics Respiratory Depth Respiratory Pattern Blood Pressure 163/87 H 180/102 H 172/103 H Blood Pressure Mean 112 128 126 Pulse Oximetry 94 97 95 Oxygen Delivery Method Sepsis Recent Fever Within 48 Hours Sepsis New/Unexplained Change in Mental Status Sepsis Action Taken by Nursing Laboratory Data Result diagrams: 01/31/21 19:18 01/31/21 19:18 Lab Results 01/31/21 01/31/21 01/31/21 Range/Units 19:09 19:18 19:18 WBC 13.32 H (4.8-10.8) K/uL RBC 4.91 (4.7-6.1) M/uL Hgb 15.8 (14.0-18.0) g/dL Hct 45.3 (42-52) % MCV 92.3 (80-100) fL MCH 32.2 (25-34) pg MCHC 34.9 (32-36) g/dL RDW Std Deviation 42.6 (36.4-46.3) fL RDW Coeff of Reginald 12.6 (11.5-14.5) % Plt Count 170 (130-400) K/uL MPV 9.4 (7.4-10.4) fL Immature Gran % (Auto) 0.4 % Neut % (Auto) 76.8 % Lymph % (Auto) 10.7 % [place] % (Auto) 5.7 % Eos % (Auto) 6.2 % Baso % (Auto) 0.2 % Neut # (Auto) 10.22 H (1.4-6.5) K/uL Lymph # (Auto) 1.43 (1.2-3.4) K/uL [place] # (Auto) 0.76 H (0.11-0.59) K/uL Eos # (Auto) 0.83 H (0-0.5) K/uL Baso # (Auto) 0.03 (0-0.2) K/uL Immature Gran # (Auto) 0.05 H (0.00-0.02) K/uL Sodium 136 (136-145) mmol/L Potassium 3.7 (3.5-5.1) mmol/L Chloride 104 (98-107) mmol/L Carbon Dioxide 27 (21-32) mmol/L Anion Gap 5.0 (3-11) BUN 9 (7-18) mg/dl Creatinine 1.27 (0.6-1.4) mg/dl Est Cr Clr Drug Dosing 83.7 ml/min Est GFR ( Amer) 73.7 ml/min Est GFR (Non-Af Amer) 63.6 ml/min BUN/Creatinine Ratio 7.1 L (10-20) Glucose 154 H (70-99) mg/dl Calcium 9.3 (8.5-10.1) mg/dl Total Bilirubin 1.4 H (0.2-1) mg/dl AST 17 (15-37) U/L ALT 26 (12-78) U/L Alkaline Phosphatase 90 (45-117) U/L Total Protein 7.8 (6.4-8.2) gm/dl Albumin 4.6 (3.4-5.0) gm/dl Globulin 3.2 (2.5-4.0) gm/dl Albumin/Globulin Ratio 1.5 (0.9-2) Lipase 945 H (73-393) U/L Urine Color Yellow Urine Appearance Clear (Clear) Urine pH 5.5 (4.5-7.5) Ur Specific [place] 1.014 (1.000-1.030) Urine Protein Negative (Negative) Urine Glucose (UA) Negative (Negative) Urine Ketones 2+ H (Negative) Urine Blood Trace H (Negative) Urine Nitrite Negative (Negative) Urine Bilirubin Negative (Negative) Urine Urobilinogen Negative (Negative) Ur Leukocyte Esterase Negative (Negative) Urine WBC (Auto) 1-5 (0-5) /hpf Urine RBC (Auto) 0-4 (0-4) /hpf U Hyaline Cast (Auto) 1-5 (0-5) /lpf U Epithel Cells (Auto) 10-20 H (0-5) /lpf Urine Bacteria (Auto) Negative (Negative) COVID-19 Eval Order SARS-CoV-2 (PCR) (Negative) 01/31/21 01/31/21 Range/Units 20:26 20:26 WBC (4.8-10.8) K/uL RBC (4.7-6.1) M/uL Hgb (14.0-18.0) g/dL Hct (42-52) % MCV (80-100) fL MCH (25-34) pg MCHC (32-36) g/dL RDW Std Deviation (36.4-46.3) fL RDW Coeff of Reginald (11.5-14.5) % Plt Count (130-400) K/uL MPV (7.4-10.4) fL Immature Gran % (Auto) % Neut % (Auto) % Lymph % (Auto) % [place] % (Auto) % Eos % (Auto) % Baso % (Auto) % Neut # (Auto) (1.4-6.5) K/uL Lymph # (Auto) (1.2-3.4) K/uL [place] # (Auto) (0.11-0.59) K/uL Eos # (Auto) (0-0.5) K/uL Baso # (Auto) (0-0.2) K/uL Immature Gran # (Auto) (0.00-0.02) K/uL Sodium (136-145) mmol/L Potassium (3.5-5.1) mmol/L Chloride (98-107) mmol/L Carbon Dioxide (21-32) mmol/L Anion Gap (3-11) BUN (7-18) mg/dl Creatinine (0.6-1.4) mg/dl Est Cr Clr Drug Dosing ml/min Est GFR ( Amer) ml/min Est GFR (Non-Af Amer) ml/min BUN/Creatinine Ratio (10-20) Glucose (70-99) mg/dl Calcium (8.5-10.1) mg/dl Total Bilirubin (0.2-1) mg/dl AST (15-37) U/L ALT (12-78) U/L Alkaline Phosphatase (45-117) U/L Total Protein (6.4-8.2) gm/dl Albumin (3.4-5.0) gm/dl Globulin (2.5-4.0) gm/dl Albumin/Globulin Ratio (0.9-2) Lipase (73-393) U/L Urine Color Urine Appearance (Clear) Urine pH (4.5-7.5) Ur Specific [place] (1.000-1.030) Urine Protein (Negative) Urine Glucose (UA) (Negative) Urine Ketones (Negative) Urine Blood (Negative) Urine Nitrite (Negative) Urine Bilirubin (Negative) Urine Urobilinogen (Negative) Ur Leukocyte Esterase (Negative) Urine WBC (Auto) (0-5) /hpf Urine RBC (Auto) (0-4) /hpf U Hyaline Cast (Auto) (0-5) /lpf U Epithel Cells (Auto) (0-5) /lpf Urine Bacteria (Auto) (Negative) COVID-19 Eval Order Covid19 at [facility] SARS-CoV-2 (PCR) NEGATIVE (Negative) Administered Medications Discontinued Medications Sodium Chloride (Nss 1000ml) 1,000 mls @ 999 mls/hr IV .Q1H1M ONE Stop: 01/31/21 21:00 Last Infusion: 01/31/21 21:44 Dose: 0 mls/hr Documented by: [id number] Admin: 01/31/21 20:21 Dose: 999 mls/hr Documented by: [id number] Ioversol (Optiray 320 100ml) 85 ml IV ONCE ONE Stop: 01/31/21 20:12 Last Admin: 01/31/21 20:13 Dose: 85 ml Documented by: [id number] Morphine Sulfate (Morphine Sulfate 10 Mg/Ml Carp/Vial) 6 mg IV NOW STA Stop: 01/31/21 20:01 Last Admin: 01/31/21 20:16 Dose: 6 mg Documented by: [id number] Morphine Sulfate (Morphine Sulfate 10 Mg/Ml Carp/Vial) 6 mg IV NOW STA Stop: 01/31/21 22:30 Last Admin: 01/31/21 22:36 Dose: 6 mg Documented by: [id number] Ondansetron HCl (Ondansetron Inj 2 Mg/Ml 2 Ml Vial) 4 mg IV NOW STA Stop: 01/31/21 20:01 Last Admin: 01/31/21 20:17 Dose: 4 mg Documented by: [id number] Discharge Plan Visit Data Chief Complaint: Abdominal Pain Stated Complaint: PANCREATITIS ED Provider: Fabiano Alvarado Discharge Problem: Abdominal pain, Pancreatitis Patient Disposition: Admitted As Inpatient Discharge Instructions Interventions: ED Discharge Assessment Last Done: 02/01/21 00:01
[2021-01-31] MEDS ORDERED: OPTIRAY 320 100ml IV ONE (20:11)
[2021-02-01] MEDS: HYDROmorphone INJ 0.5 MG/0.5 ML SYR IV PRN ×7 (01:47→22:20)
[2021-02-01] MEDS: LACTATED RINGER'S 1,000 ML IV SCH ×5 (01:51→20:59)
--- NOTE | 2021-02-01 02:14 | History and Physical Report ---
DATE OF ADMISSION: 01/31/2021. CHIEF COMPLAINT: Abdominal pain. HISTORY OF PRESENT ILLNESS: This is a 55-year-old male with past medical history significant for hyperlipidemia, nonallergic rhinitis, calculus of kidney, history of concussion with loss of consciousness, history of depression, history of shingles, history of alcoholism, pancreatitis, presented with abdominal pain. The patient says last night he is having severe abdominal pain. When he came it was 10/10 severity associated with some nausea.Pain is in the upper abdomen, epigastric region, radiates to the back. He had a history of pancreatitis in the past associated with alcoholism. He stopped alcohol use.This is his third episode of pancreatitis. He only drank alcohol , 6-pack beer for 3-4 days when he developed this abdominal pain. Denies any other complaints. No diarrhea or constipation. Normal bladder movements. No chest pain, no shortness of breath. Has occasional cough. Has some headache, no blurred visions, no earache, no runny nose, has some sore throat. Currently resting comfortably and hemodynamically stable. ALLERGIES: CYCLOBENZAPRINE. PAST MEDICAL HISTORY: As mentioned above. PAST SURGICAL HISTORY: Right AC joint surgery, anal papillectomy, colonoscopy, left corneal tissue transplant, left inguinal hernia repair. MEDICATIONS: The patient is on atorvastatin 20 mg p.o. daily, Lexapro 20 mg p.o. daily, Lamictal 100 mg p.o. b.i.d. FAMILY HISTORY: Significant for mother has allergies, breast cancer, eye problems. Sister has breast cancer. Maternal grandfather has heart disorder, paternal grandfather has heart disorder. SOCIAL HISTORY: , former smoker, smoked 1 pack a day for 6 years , currently stopped alcohol because of his pancreatitis. REVIEW OF SYSTEMS: As per HPI. Rest of the review of systems is negative. PHYSICAL EXAMINATION: GENERAL: The patient is of moderate build, not in acute distress. VITAL SIGNS: Temperature 36.6, pulse 66, respiratory rate 17, blood pressure 163/87, oxygen 94% on room air. HEENT: Pupils equal, round and reactive to light. Oral mucosa moist. NECK: No JVD or neck masses. CARDIOVASCULAR: S1 and S2 heard. Regular rate and rhythm. No murmur, no gallop. RESPIRATORY SYSTEM: Normal AP diameter. No accessory muscle use. No wheezing, no crackles. ABDOMEN: Soft, bowel sounds present, nontender, no distention. CENTRAL NERVOUS SYSTEM: Cranial nerves II-XII grossly intact, nonfocal. EXTREMITIES: No edema, no erythema. LABORATORY DATA: WBC 13.3, hemoglobin 15.8, hematocrit 45.3, platelets 170. Sodium 136, potassium 3.7, chloride 104, bicarbonate 27, BUN 9, creatinine 1.2, serum glucose 154, calcium 9.3, total bilirubin 1.4, AST 79, ALT 76, alkaline phosphatase 90, lipase 945. Urinalysis +2 ketones, trace. SARS-CoV-2 PCR negative. IMAGING DATA: CT of abdomen and pelvis, stranding and edema about the head and body of the pancreas suggest pancreatitis. ASSESSMENT AND PLAN: This is a 55-year-old male presents with recurrent pancreatitis. 1. Recurrent pancreatitis, alcohol-induced. Keep him n.p.o., IV fluids with Ringer lactate at 200 mL per hour, IV Dilaudid p.r.n. Monitor in the medical floor. Consult GI in the a.m. 2. History of hyperlipidemia. Continue statins. 3. History of depression. Continue Lexapro and Lamictal. 4. History of alcoholism. Currently, he is not drinking regularly because of his episodes of pancreatitis. Last time he drank was few days back days, when he developed abdominal pain. We will monitor for any withdrawal symptoms. We will place him on p.o. thiamine and multivitamins. 4. Deep venous thrombosis prophylaxis: Lovenox. DISPOSITION: Closely monitor in the medical floor. PT/OT prior to discharge. Social service to help with discharge planning. Job ID: [id number] [facility]
[2021-02-01 05:56] LABS: Basophils # (auto) 0.03 K/uL (0-0.2); Basophils % (auto) 0.2 %; Eosinophils # (auto) 1.14 K/uL (0-0.5); Eosinophils % (auto) 8.6 %; Hematocrit (blood only) 42.6 % (42-52); Hemoglobin 14.6 g/dL (14.0-18.0); Immature Granulocytes # (auto) 0.03 K/uL (0.00-0.02); Immature Granulocytes % (auto) 0.2 %; Lymphocytes # (auto) 2.09 K/uL (1.2-3.4); Lymphocytes % (auto) 15.7 %; Mean Corpuscular Hgb Conc 34.3 g/dL (32-36); Mean Corpuscular Volume 93.4 fL (80-100); Mean Platelet Volume 9.5 fL (7.4-10.4); Monocytes # (auto) 1.42 K/uL (0.11-0.59); Monocytes % (auto) 10.7 %; Neutrophils # (auto) 8.58 K/uL (1.4-6.5); Neutrophils % (auto) 64.6 %; Platelet Count 140 K/uL (130-400); RDW Coefficient of Variation 12.7 % (11.5-14.5); RDW Standard Deviation 43.3 fL (36.4-46.3); Red Blood Count 4.56 M/uL (4.7-6.1); White Blood Count 13.29 K/uL (4.8-10.8)
[2021-02-01 06:31] LABS: BUN Creatinine Ratio 7.4 (10-20); Calcium 8.8 mg/dl (8.5-10.1); Creatinine Clr Calc Pharmacy 100.6 ml/min; Est GFR (African American) 92.8 ml/min; Est GFR (Non-African American) 80.1 ml/min; Magnesium 2.3 mg/dl (1.8-2.4); Potassium 3.9 mmol/L (3.5-5.1)
--- NOTE | 2021-02-01 08:13 | CT Scan Report ---
ABDOMEN AND PELVIS CT WITH IV CONTRAST CT DOSE: 764.41 mGy.cm HISTORY: Generalized abdominal pain. TECHNIQUE: Multiaxial CT images of the abdomen and pelvis were performed following the use of intrave nous contrast. A dose lowering technique was utilized adhering to the principles of ALARA. COMPARISON STUDY: Abdomen and pelvis CT 12/07/2019. FINDINGS: The lung bases are clear. Mild peripancreatic inflammatory change surrounding the head of t he pancreas. This is consistent with acute pancreatitis. No evidence for pancreatic necrosis. Mild th ickening within the second and third portion of the duodenum is likely reactive. The liver, gallbladd er, spleen, adrenal glands, left kidney are unremarkable. There is a punctate stone within the lower pole of the right kidney. No hydronephrosis. No retroperitoneal lymphadenopathy. Normal caliber abdom inal aorta. Bladder wall thickening is likely due to underdistention. The prostate gland is mildly en larged. No evidence for bowel obstruction. Normal appendix. The main portal vein is patent. No suspic ious lytic or blastic osseous lesions. IMPRESSION: 1. Acute pancreatitis. This is similar to the prior CT examination. 2. Right-sided nephrolithiasis. No hydronephrosis. 3. Mild thickening within the duodenum is likely reactive to the pancreatitis. 4. No evidence for bowel obstruction. ACT 112: Negative or not required by law. Electronically signed by: Jayesh Mandujano M.D. 02/01/2021 8:11 AM
[2021-02-01] MEDS: lamoTRIgine 100 MG TAB PO SCH ×2 (08:40→20:36)
[2021-02-01] MEDS: THIAMINE HCL 100 MG TAB PO SCH (08:40)
[2021-02-01] MEDS: CEROVITE ADV FORMULA TAB PO SCH (08:40)
[2021-02-01] MEDS: ESCITALOPRAM OXALATE 20 MG TAB PO SCH (08:40)
[2021-02-01] MEDS: ATORVASTATIN 20 MG TAB PO SCH (08:41)
[2021-02-01] MEDS: ENOXAPARIN INJ 40 MG/0.4 ML SYR SQ SCH (08:42)
[2021-02-01] MEDS ORDERED: GLYCERIN ADULT 12 SUPP/BOX SUPP PR PRN (10:33)
[2021-02-01] MEDS ORDERED: GLYCERIN ADULT 12 SUPP/BOX SUPP PR ONE (10:33)
--- NOTE | 2021-02-01 11:23 | Gastrointestinal Consultation ---
Date of Consultation February 01, 2021 Assessment & Plan (1) Abdominal pain: (2) Pancreatitis: Continue supportive care with aggressive IVF hydration, antiemetics, and narcotic analgesics Discussed need to abstain from all alcohol in the future as it is a known liver toxin Advance to clears as tolerated [facility] will resume care on 02/02/2021 History of Present Illness Reason for Consultation: Acute Pancreatitis Attending Physician: Gale Banerjee DO History of Present Illness Lg Contreras is a 55 yo CM with a significant PMHx of alcohol abuse and recurrent pancreatitis, who presented to the ER last night with complaints of abdominal pain and nausea with vomiting. He did consume a significant amount of alcohol in the days leading up to his acute symptoms, after having a period of abstinence of approximately 2-3 months. Upon arrival to the ER, he was noted to have an elevated lipase, and CT imaging in the ER was notable for changes consistent with acute pancreatitis. He was admitted and placed on aggressive IVF hydration, kept NPO and given narcotic analgesics and antiemetic therapy. At the time I saw him, he continued to have epigastric abdominal pain with radiation to his back. He did note improvement in his nausea, following administration of Zofran therapy. He denies any fevers, chills, nausea, vomiting, hematemesis, melena or hematochezia. He has no further complaints. Allergies Allergy/AdvReac Type Severity Reaction Status Date / Time cyclobenzaprine AdvReac Mild constipatio Verified 01/31/21 20:19 n Home Medications Medication Instructions Recorded Confirmed Type atorvastatin 20 mg tablet 20 mg PO DAILY 12/07/19 01/31/21 History escitalopram oxalate 20 mg tablet 20 mg PO DAILY 12/07/19 01/31/21 History (Lexapro) lamotrigine 100 mg tablet 100 mg PO BID 01/31/21 01/31/21 History Patient History Medical History Acute pancreatitis Depression Fuchs' corneal dystrophy History of multiple concussions HLD (hyperlipidemia) Surgical History No significant past surgical history Social History Smoking Status: Former smoker Tobacco Type: Cigarettes Smoking End Date: pt cannot remember; pt states long time ago; Second Hand Exposure: No; Tobacco Cessation Education Requested by Patient: No Hx Alcohol Use: Yes Alcohol type: beer Hx Substance Use: Yes Last Used Substance: Unknown Last Used Substance Other:: marijuana years ago Preferred Language: Kyrgyz Communication Ability: Effective 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 Beliefs That Will Affect Care: None Current Living Situation: Spouse Other Information That Helps Us Care for You: No Feels Safe at Home: Yes Safety Concerns: Feels Safe At This Time Assistive Devices: None Assistive Devices Comment: reading glasses Review of Systems Constitutional: as per Subjective / HPI Eyes: as per Subjective / HPI Ear, Nose, Mouth, Throat: as per Subjective / HPI Respiratory: as per Subjective / HPI Cardiovascular: as per Subjective / HPI Gastrointestinal: as per Subjective / HPI Musculoskeletal: as per Subjective / HPI Integumentary: as per Subjective / HPI Neurologic: as per Subjective / HPI Psychiatric: as per Subjective / HPI Endocrine: as per Subjective / HPI Hematologic / Lymphatic: as per Subjective / HPI Allergy / Immunological: as per Subjective / HPI Physical Exam Constitutional: WD/WN, vitals as above Eyes: + anicteric sclerae ENMT: external ear and nose normal, oropharynx normal Neck: trachea midline, no thyromegaly Respiratory: normal respiratory effort, lungs clear to auscultation Cardiovascular: RRR, no murmur, no edema Gastrointestinal (Abdomen): normal bowel sounds, soft, nontender, no hepatosplenomegaly Skin: no rashes, warm and dry Psychiatric: A+Ox3, euthymic affect Results & Data ([facility]) Vital Signs (Past 12 Hours) Vital Signs Temp Pulse Pulse Resp BP BP Pulse Ox 02/01/21 07:30 36.9 C 60 16 146/80 H 96 02/01/21 00:10 36.9 C 63 18 168/89 H 95 02/01/21 00:01 86 16 133/88 98 PG Care Time/CCT Total # of Minutes Spent Total Time Spent with Patient: Total time spent is greater than 50% in coordination of care (as documented) at patient's floor/unit and/or counseling patient: Coding Level of Care Code 09544 Inpt Consult Level 3 Diagnoses Abdominal pain R10.9 Abdominal location: unspecified location Pancreatitis K85.20 Acute pancreatitis complication: unspecified Chronicity: acute Pancreatitis type: alcohol induced (1) Abdominal pain Abdominal location: unspecified location Qualified Code(s): R10.9 - Unspecified abdominal pain (2) Pancreatitis Acute pancreatitis complication: unspecified Chronicity: acute Pancreatitis type: alcohol induced Qualified Code(s): K85.20 - Alcohol induced acute pancreatitis without necrosis or infection
--- NOTE | 2021-02-01 12:18 | Hospitalist Progress Note ---
Date of Service February 01, 2021 Assessment & Plan (1) Acute pancreatitis: Plan: Likely secondary to alcohol use. He has had pancreatitis at least twice in the past causing admission to the hospital. He is performed drug and alcohol rehab with some success although he is still drinking. Encouraged to abstain from alcohol completely moving forward. He verbalized understanding with intent to comply. Continue supportive care efforts with IV hydration and bowel rest. Antiemetics and narcotic analgesics as needed. (2) Alcohol abuse: Plan: Monitor closely for withdrawal, lower likelihood as patient is hemodynamically stable and well-appearing with last drink approximately 1 week ago. Abstain from alcohol as above. Continue daily thiamine and multivitamins. (3) Depression: Plan: Continue Lexapro and Lamictal per home regimen. (4) DVT prophylaxis: Plan: Lovenox Full code Disposition-continue hospital stay until patient is able to tolerate solid food DO Hector [facility] Hospitalist Admission and Anticipated Discharge Date Admission Date: January 31, 2021 Subjective 55 yo M admitted with alcoholic pancreatitis. Still wtih severe epigastric pain requiring narcotic pain medications No SOB or chest pain +constipation, but hasn't eaten in several days Symptoms began on Mon (6 days ago) and he tried to manage this at home himself. Previously admitted in 2019 for same issue Still drinking alcohol but reports he has cut down-now drinks 3-6 beers daily, no ETOH since Sun Review of Systems Review of Systems: At least ten systems were reviewed and negative except as indicated in HPI above. Physical Exam Physical Exam: CONSTITUTIONAL: WNWD, vitals as above, generally NAD EYES: normal conjunctivae, no scleral icterus ENT: external ear and nose normal, MMM NECK: trachea midline RESPIRATORY: clear to auscultation bilaterally, no crackles, rales or wheezes, normal respiratory effort CARDIOVASCULAR: regular rate and rhythm, S1 and 2 heard without murmurs, gallops or rubs, no JVD, no peripheral edema GASTROINTESTINAL: soft, TTP in epigastric region, no guarding, no changes in skin color over abdomen or flanks. MUSCULOSKELETAL: strength 5/5 throughout, head is normocephalic and atraumatic SKIN: warm and dry NEUROLOGIC: CN 2-12 grossly intact, normal cognition, normal speech, no tremor, no gross focal deficits. PSYCHIATRIC: alert cooperative and oriented to person, place and time. Results & Data Results & Data ([facility]) Vital Signs (Past 12 Hours) Vital Signs Temp Pulse Resp BP Pulse Ox 02/01/21 07:30 36.9 C 60 16 146/80 H 96 02/01/21 00:10 36.9 C 63 18 168/89 H 95 Laboratory Results Short CBC 01/31/21 02/01/21 Range/Units 19:18 05:24 WBC 13.32 H 13.29 H (4.8-10.8) K/uL Hgb 15.8 14.6 (14.0-18.0) g/dL Hct 45.3 42.6 (42-52) % Plt Count 170 140 (130-400) K/uL BMP 01/31/21 02/01/21 19:18 05:24 Sodium 136 138 Potassium 3.7 3.9 Chloride 104 110 H Carbon Dioxide 27 27 BUN 9 8 Creatinine 1.27 1.05 Glucose 154 H 94 Calcium 9.3 8.8 Liver Function 01/31/21 Range/Units 19:18 Total Bilirubin 1.4 H (0.2-1) mg/dl AST 17 (15-37) U/L ALT 26 (12-78) U/L Alkaline Phosphatase 90 (45-117) U/L Albumin 4.6 (3.4-5.0) gm/dl Urine 01/31/21 Range/Units 19:09 Urine Color Yellow Urine Appearance Clear (Clear) Urine pH 5.5 (4.5-7.5) Ur Specific [place] 1.014 (1.000-1.030) Urine Protein Negative (Negative) Urine Glucose (UA) Negative (Negative) Diagnostic Findings Abdomen/Pelvis CT 01/31/21 19:[address] WITH IV CONTRAST CT DOSE: 764.41 mGy.cm HISTORY: Generalized abdominal pain. TECHNIQUE: Multiaxial CT images of the abdomen and pelvis were performed followi ng the use of intravenous contrast. A dose lowering technique was utilized adhering to the principles of ALARA. COMPARISON STUDY: Abdomen and pelvis CT 12/07/2019. FINDINGS: The lung bases are clear. Mild peripancreatic inflammatory change surrounding the head of the pancreas. This is consistent with acute pancreatitis. No evidence for pancreatic necrosis. Mild thickening within the second and third portion of the duodenum is likely reactive. The liver, gallbladder, spleen, adrenal glands, left kidney are unremarkable. There is a punctate stone within the lower pole of the right kidney. No hydronephrosis. No retroperitoneal lymphadenopathy. Normal caliber abdominal aorta. Bladder wall thickening is likely due to underdistention. The prostate gland is mildly enlarged. No evidence for bowel obstruction. Normal appendix. The main portal vein is patent. No suspicious lytic or blastic osseous lesions. IMPRESSION: 1. Acute pancreatitis. This is similar to the prior CT examination. 2. Right-sided nephrolithiasis. No hydronephrosis. 3. Mild thickening within the duodenum is likely reactive to the pancreatitis. 4. No evidence for bowel obstruction. ACT 112: Negative or not required by law. Electronically signed by: Jayesh Mandujano M.D. 02/01/2021 8:11 AM Medications Administered Current Inpatient Medications Atorvastatin Calcium (Atorvastatin 20 Mg Tab) 20 mg PO DAILY JOSE Stop: 03/03/21 08:59 Last Admin: 02/01/21 08:41 Dose: 20 mg Documented by: Enoxaparin Sodium (Enoxaparin Inj 40 Mg/0.4 Ml Syr) 40 mg SQ Q24H JOSE Stop: 03/03/21 08:59 Last Admin: 02/01/21 08:42 Dose: 40 mg Documented by: Escitalopram Oxalate (Escitalopram Oxalate 20 Mg Tab) 20 mg PO DAILY JOSE Stop: 03/03/21 08:59 Last Admin: 02/01/21 08:40 Dose: 20 mg Documented by: Glycerin (Glycerin Adult 12 Supp/Box Supp) 1 supp [place] DAILY PRN PRN Reason: Constipation Stop: 03/03/21 10:32 Hydromorphone HCl (Hydromorphone Inj 0.5 Mg/0.5 Ml Syr) 0.5 mg IV Q3H PRN PRN Reason: Pain Stop: 02/15/21 00:56 Last Admin: 02/01/21 11:34 Dose: 0.5 mg Documented by: Lactated Ringer's (Lr) 1,000 mls @ 200 mls/hr IV .Q5H JOSE Stop: 03/03/21 00:56 Last Admin: 02/01/21 11:14 Dose: 200 mls/hr Documented by: Lamotrigine (Lamotrigine 100 Mg Tab) 100 mg PO BID JOSE Stop: 03/03/21 08:59 Last Admin: 02/01/21 08:40 Dose: 100 mg Documented by: Multivitamins/Minerals (Cerovite Adv Formula Tab) 1 tab PO [facility] Stop: 03/03/21 08:59 Last Admin: 02/01/21 08:40 Dose: 1 tab Documented by: Thiamine HCl (Thiamine Hcl 100 Mg Tab) [facility] Stop: 03/03/21 08:59 Last Admin: 02/01/21 08:40 Dose: 100 mg Documented by:
[2021-02-01] MEDS: prednisoLONE acetate 1% OP SUSP 5 ML BTL OP SCH (21:42)
[2021-02-02] MEDS: HYDROmorphone INJ 0.5 MG/0.5 ML SYR IV PRN ×3 (01:22→07:57)
[2021-02-02] MEDS: LACTATED RINGER'S 1,000 ML IV SCH ×5 (01:51→22:39)
[2021-02-02] MEDS: ATORVASTATIN 20 MG TAB PO SCH (07:56)
[2021-02-02] MEDS: ESCITALOPRAM OXALATE 20 MG TAB PO SCH (07:56)
[2021-02-02] MEDS: ENOXAPARIN INJ 40 MG/0.4 ML SYR SQ SCH (07:56)
[2021-02-02] MEDS: lamoTRIgine 100 MG TAB PO SCH ×2 (07:56→20:51)
[2021-02-02] MEDS: CEROVITE ADV FORMULA TAB PO SCH (07:56)
[2021-02-02] MEDS: THIAMINE HCL 100 MG TAB PO SCH (07:57)
[2021-02-02] MEDS ORDERED: HYDROmorphone INJ 0.5 MG/0.5 ML SYR IV PRN (09:24)
[2021-02-02] MEDS: PANTOprazole 40 MG TAB PO SCH (09:51)
[2021-02-02 09:54] LABS: Hematocrit (blood only) 41.3 % (42-52); Mean Corpuscular Hemoglobin 31.7 pg (25-34); Mean Corpuscular Hgb Conc 33.9 g/dL (32-36); Mean Corpuscular Volume 93.4 fL (80-100); Mean Platelet Volume 9.5 fL (7.4-10.4); Platelet Count 149 K/uL (130-400); RDW Coefficient of Variation 12.5 % (11.5-14.5); RDW Standard Deviation 42.9 fL (36.4-46.3); Red Blood Count 4.42 M/uL (4.7-6.1); White Blood Count 9.53 K/uL (4.8-10.8)
[2021-02-02 10:13] LABS: BUN Creatinine Ratio 7.4 (10-20); Calcium 9.2 mg/dl (8.5-10.1); Creatinine Clr Calc Pharmacy 97.8 ml/min; Est GFR (African American) 89.7 ml/min; Est GFR (Non-African American) 77.4 ml/min; Potassium 3.8 mmol/L (3.5-5.1)
--- NOTE | 2021-02-02 10:35 | Gastroenterology Progress Note ---
Date of Service February 02, 2021 Assessment & Plan (1) Alcohol abuse: (2) Pancreatitis: Plan: Pt is a 55 y/o male admitted with suspected ETOH pancreatitis. Lipase increased and he is having persistent abd pain - NPO - LR @200ml/hr - Symptomatic management w antiemetics and analgesics prn - ETOH cessation advised - Outpt EUS in 4-6 weeks' time Admission and Anticipated Discharge Date Admission Date: January 31, 2021 Supervising Physician Co-Signing Physician Notes Acute pancreatitis suspected to be from ethanol. No signs of biliary dilation on imaging with normal lt's. Lipase 58880 with wbc count of 13.3 PE as below Further plan of care as below. Subjective Pt reports having abd pain still no n/v, is passing flatus but no BMs x 4 days Review of Systems Review of Systems: All systems reviewed & are unremarkable except as noted in HPI & below Physical Exam Constitutional: WD/WN, vitals as above well groomed, cooperative and comfortable Eyes: PERRL, conjunctivae normal, anicteric sclerae ENMT: external ear and nose normal, oropharynx normal Respiratory: normal respiratory effort, lungs clear to auscultation Cardiovascular: RRR, no murmur, no edema Gastrointestinal (Abdomen): Abd soft, + TTP, BS present Skin: no rashes, warm and dry no jaundice Psychiatric: A+Ox3, euthymic affect Lymphatic: no lymphedema Results & Data ([facility]) Vital Signs (Past 12 Hours) Vital Signs Temp Pulse Resp BP Pulse Ox 02/02/21 07:38 36.8 C 62 18 137/77 97 02/01/21 23:01 37 C 73 16 147/82 H 95 (1) Pancreatitis Acute pancreatitis complication: unspecified Chronicity: acute Pancreatitis type: alcohol induced Qualified Code(s): K85.20 - Alcohol induced acute pancreatitis without necrosis or infection
--- NOTE | 2021-02-02 10:42 | Hospitalist Progress Note ---
Date of Service February 02, 2021 Assessment & Plan (1) Acute pancreatitis: Plan: Likely secondary to alcohol use. He has had pancreatitis at least twice in the past causing admission to the hospital. He is performed drug and alcohol rehab with some success although he is still drinking. Encouraged to abstain from alcohol completely moving forward. He verbalized understanding with intent to comply. Continue supportive care efforts with IV hydration and bowel rest. Considered a diet but agreed this is not a good idea with current pain level- reconsider diet tomorrow. Antiemetics and narcotic analgesics as needed. Consistent use of dilaudid overnight, added oxy PO for help with longer acting pain control. (2) Alcohol abuse: Plan: No evidence of withdrawal. Abstain from alcohol as above. Continue daily thiamine and multivitamins. (3) Depression: Plan: Continue Lexapro and Lamictal per home regimen. (4) DVT prophylaxis: Plan: Lovenox Full code Disposition-continue hospital stay until patient is able to tolerate solid food, consider PO tomorrow. Gale Banerjee DO [facility] Hospitalist Admission and Anticipated Discharge Date Admission Date: January 31, 2021 Subjective 55 yo M admitted with alcoholic pancreatitis. Still wtih severe epigastric pain requiring narcotic pain medications-added oxycodone PO and encouraged use of PO instead of IV No SOB or chest pain +constipation, but hasn't eaten in several days, +flatus reports only filling up the urinal twice since yesterday despite being on 200cc/hr of LR continuously. Review of Systems Review of Systems: At least ten systems were reviewed and negative except as indicated in HPI above. Physical Exam Physical Exam: CONSTITUTIONAL: WNWD, vitals as above, generally NAD EYES: normal conjunctivae, no scleral icterus ENT: external ear and nose normal, MMM NECK: trachea midline RESPIRATORY: clear to auscultation bilaterally, no crackles, rales or wheezes, normal respiratory effort CARDIOVASCULAR: regular rate and rhythm, S1 and 2 heard without murmurs, gallops or rubs, no JVD, no peripheral edema GASTROINTESTINAL: soft, TTP in epigastric region, no guarding, no changes in skin color over abdomen or flanks. MUSCULOSKELETAL: strength 5/5 throughout, head is normocephalic and atraumatic SKIN: warm and dry NEUROLOGIC: CN 2-12 grossly intact, normal cognition, normal speech, no tremor, no gross focal deficits. PSYCHIATRIC: alert cooperative and oriented to person, place and time. Results & Data Results & Data ([facility]) Vital Signs (Past 12 Hours) Vital Signs Temp Pulse Resp BP Pulse Ox 02/02/21 07:38 36.8 C 62 18 137/77 97 02/01/21 23:01 37 C 73 16 147/82 H 95 Laboratory Results Short CBC 02/02/21 Range/Units 09:37 WBC 9.53 (4.8-10.8) K/uL Hgb 14.0 (14.0-18.0) g/dL Hct 41.3 L (42-52) % Plt Count 149 (130-400) K/uL BMP 02/02/21 09:37 Sodium 139 Potassium 3.8 Chloride 105 Carbon Dioxide 26 BUN 8 Creatinine 1.08 Glucose 76 Calcium 9.2 Medications Administered Current Inpatient Medications Atorvastatin Calcium (Atorvastatin 20 Mg Tab) 20 mg PO DAILY JOSE Stop: 03/03/21 08:59 Last Admin: 02/02/21 07:56 Dose: 20 mg Documented by: Enoxaparin Sodium (Enoxaparin Inj 40 Mg/0.4 Ml Syr) 40 mg SQ Q24H JOSE Stop: 03/03/21 08:59 Last Admin: 02/02/21 07:56 Dose: 40 mg Documented by: Escitalopram Oxalate (Escitalopram Oxalate 20 Mg Tab) 20 mg PO DAILY JOSE Stop: 03/03/21 08:59 Last Admin: 02/02/21 07:56 Dose: 20 mg Documented by: Glycerin (Glycerin Adult 12 Supp/Box Supp) 1 supp [place] DAILY PRN PRN Reason: Constipation Stop: 03/03/21 10:32 Last Admin: 02/01/21 18:00 Dose: 1 supp Documented by: Hydromorphone HCl (Hydromorphone Inj 0.5 Mg/0.5 Ml Syr) 0.5 mg IV Q3H PRN PRN Reason: severe pain Stop: 02/15/21 00:56 Lactated Ringer's (Lr) 1,000 mls @ 200 mls/hr IV .Q5H JOSE Stop: 03/03/21 00:56 Last Admin: 02/02/21 06:33 Dose: 200 mls/hr Documented by: Lamotrigine (Lamotrigine 100 Mg Tab) 100 mg PO BID JOSE Stop: 03/03/21 08:59 Last Admin: 02/02/21 07:56 Dose: 100 mg Documented by: Multivitamins/Minerals (Cerovite Adv Formula Tab) 1 tab PO QAM JOSE Stop: 03/03/21 08:59 Last Admin: 02/02/21 07:56 Dose: 1 tab Documented by: Oxycodone HCl (Oxycodone Hcl Ir 5 Mg Tab (Immediate Release)) 5 mg PO Q4H PRN PRN Reason: severe pain Stop: 02/16/21 09:22 Pantoprazole Sodium (Pantoprazole 40 Mg Tab) 40 mg PO QAM [facility] Stop: 03/04/21 08:59 Last Admin: 02/02/21 09:51 Dose: 40 mg Documented by: Prednisolone Acetate (Prednisolone Acetate 1% Op Susp 5 Ml Btl) 1 - 2 drops OP DAILY JOSE Stop: 03/03/21 20:04 Last Admin: 02/01/21 21:42 Dose: 1 drops Documented by: Thiamine HCl (Thiamine Hcl 100 Mg Tab) 100 mg PO QAM JOSE Stop: 03/03/21 08:59 Last Admin: 02/02/21 07:57 Dose: 100 mg Documented by:
[2021-02-02] MEDS: oxyCODONE HCL IR 5 MG TAB (IMMEDIATE RELEASE) PO PRN ×3 (11:21→23:51)
[2021-02-02] MEDS ORDERED: Nursing to Pharmacy Communication SCH (17:00)
[2021-02-02] MEDS: prednisoLONE acetate 1% OP SUSP 5 ML BTL OP SCH ×2 (20:51→20:53)
[2021-02-03] MEDS: LACTATED RINGER'S 1,000 ML IV SCH ×3 (03:09→12:59)
--- NOTE | 2021-02-03 09:07 | Hospitalist Progress Note ---
Date of Service February 03, 2021 Assessment & Plan (1) Acute pancreatitis: Plan: -Likely secondary to alcohol use. He has had pancreatitis at least twice in the past causing admission to the hospital. He has performed drug and alcohol rehab with some success although he is still drinking. Encouraged to abstain from alcohol completely moving forward. -pain and nausea much improved today, will slowly advance diet by starting with clear liquids -Antiemetics and narcotic analgesics as needed. Was persistently requiring Dilaudid (last dose 02/02 AM), PRN oxycodone added 02/02 (last dose 02/02 2300) -GI consulted, appreciated recs. Planning for outpt EUS (2) Alcohol abuse: Plan: -No evidence of withdrawal. Abstain from alcohol as above. -Continue daily thiamine and multivitamins. (3) Depression: Plan: -Continue Lexapro and Lamictal per home regimen. (4) DVT prophylaxis: Plan: -Lovenox Dispo - starting clears today, consider D/C late tomorrow if tolerating solids Admission and Anticipated Discharge Date Admission Date: January 31, 2021 Supervising Physician Co-Signing Physician Notes I have seen and examined the patient and have discussed the case with the provider above. I agree with the assessment and plan as stated. 55 yo alcoholic with recurrent pancreatitis. Today symptoms have resolved and he is tolerating clears without issues. Ambulating around the room. Advance diet overnight and ensure still feeling well. Strongly encourage to abstain from drinking alcohol. Patient verbalized understanding with intent to comply. Physical exam reveals normal heart and lung exams and a normal abdominal exam. Has a bilateral conjunctivitis that seemed to start when he arrived into the room, possibly allergic? Naphcon-A drops. DC to home in am. [place], DO Subjective Patient seen and examined. Ambulating in room. Reports much improvement in pain this morning. No nausea or vomiting. Reports some bloating. No BM. Urinating without difficulty. Physical Exam Constitutional: WD/WN, vitals as above no acute distress Respiratory: normal respiratory effort, lungs clear to auscultation Cardiovascular: Rate/Rhythm: regular rate and regular rhythm Vessels: normal peripheral pulses Extremities: no edema Gastrointestinal (Abdomen): Inspection/Auscultation: normal bowel sounds Percussion/Palpation: + abdomen tender (mild epigastric tenderness with deep palpation) and abdomen soft Skin: no rashes, warm and dry Neurologic: no focal motor deficits Psychiatric: A+Ox3, euthymic affect Results & Data Results & Data ([facility]) Vital Signs (Past 12 Hours) Vital Signs Temp Pulse Resp BP Pulse Ox 02/03/21 07:37 36.7 C 63 16 164/73 H 95 02/02/21 22:45 36.9 C 70 20 162/68 H 98 Laboratory Results Short CBC 02/02/21 Range/Units 09:37 WBC 9.53 (4.8-10.8) K/uL Hgb 14.0 (14.0-18.0) g/dL Hct 41.3 L (42-52) % Plt Count 149 (130-400) K/uL BMP 02/02/21 09:37 Sodium 139 Potassium 3.8 Chloride 105 Carbon Dioxide 26 BUN 8 Creatinine 1.08 Glucose 76 Calcium 9.2
[2021-02-03] MEDS: lamoTRIgine 100 MG TAB PO SCH ×2 (09:30→20:41)
[2021-02-03] MEDS: THIAMINE HCL 100 MG TAB PO SCH (09:30)
[2021-02-03] MEDS: ATORVASTATIN 20 MG TAB PO SCH (09:30)
[2021-02-03] MEDS: CEROVITE ADV FORMULA TAB PO SCH (09:31)
[2021-02-03] MEDS: PANTOprazole 40 MG TAB PO SCH (09:31)
[2021-02-03] MEDS: ESCITALOPRAM OXALATE 20 MG TAB PO SCH (09:31)
[2021-02-03] MEDS: ENOXAPARIN INJ 40 MG/0.4 ML SYR SQ SCH (09:32)
[2021-02-03] MEDS ORDERED: ARTIFICIAL TEARS OP PRN (10:56)
[2021-02-03] MEDS ORDERED: NAPHAZOLIN/PHENIRAMIN OPH SOLN 75 DROPS/5 ML BTL OPB PRN (15:58)
[2021-02-03] MEDS ORDERED: NAPHAZOLIN/PHENIRAMIN OPH SOLN 75 DROPS/5 ML BTL OPB STA (16:00)
[2021-02-03] MEDS: prednisoLONE acetate 1% OP SUSP 5 ML BTL OP SCH (20:41)
[2021-02-04] MEDS ORDERED: NAPHAZOLIN/PHENIRAMIN OPH SOLN 75 DROPS/5 ML BTL OPR STA (01:47)
[2021-02-04 07:05] LABS: BUN Creatinine Ratio 5.9 (10-20); Calcium 9.3 mg/dl (8.5-10.1); Creatinine Clr Calc Pharmacy 102.5 ml/min; Potassium 3.6 mmol/L (3.5-5.1)
[2021-02-04] MEDS: ATORVASTATIN 20 MG TAB PO SCH (09:29)
[2021-02-04] MEDS: CEROVITE ADV FORMULA TAB PO SCH (09:30)
[2021-02-04] MEDS: ENOXAPARIN INJ 40 MG/0.4 ML SYR SQ SCH (09:30)
[2021-02-04] MEDS: lamoTRIgine 100 MG TAB PO SCH (09:30)
[2021-02-04] MEDS: ESCITALOPRAM OXALATE 20 MG TAB PO SCH (09:30)
[2021-02-04] MEDS: THIAMINE HCL 100 MG TAB PO SCH (09:31)
[2021-02-04] MEDS: PANTOprazole 40 MG TAB PO SCH (09:31)
--- NOTE | 2021-02-04 15:08 | Discharge Summary ---
Date of Service February 04, 2021 Admission HPI Per Admitting Provider This is a 55-year-old male with past medical history significant for hyperlipidemia, nonallergic rhinitis, calculus of kidney, history of concussion with loss of consciousness, history of depression, history of shingles, history of alcoholism, pancreatitis, presented with abdominal pain. The patient says last night he is having severe abdominal pain. When he came it was 10/10 severity associated with some nausea.Pain is in the upper abdomen, epigastric region, radiates to the back. He had a history of pancreatitis in the past associated with alcoholism. He stopped alcohol use.This is his third episode of pancreatitis. He only drank alcohol , 6-pack beer for 3-4 days when he developed this abdominal pain. Denies any other complaints. No diarrhea or constipation. Normal bladder movements. No chest pain, no shortness of breath. Has occasional cough. Has some headache, no blurred visions, no earache, no runny nose, has some sore throat. Currently resting comfortably and hemodynamically stable. Admission Exam Per Admitting Provider GENERAL: The patient is of moderate build, not in acute distress. VITAL SIGNS: Temperature 36.6, pulse 66, respiratory rate 17, blood pressure 163/87, oxygen 94% on room air. HEENT: Pupils equal, round and reactive to light. Oral mucosa moist. NECK: No JVD or neck masses. CARDIOVASCULAR: S1 and S2 heard. Regular rate and rhythm. No murmur, no gallop. RESPIRATORY SYSTEM: Normal AP diameter. No accessory muscle use. No wheezing, no crackles. ABDOMEN: Soft, bowel sounds present, nontender, no distention. CENTRAL NERVOUS SYSTEM: Cranial nerves II-XII grossly intact, nonfocal. EXTREMITIES: No edema, no erythema. Principal Diagnosis Alcohol pancreatitis Discharge Exam Constitutional WD/WN, vitals as above Respiratory normal respiratory effort, lungs clear to auscultation Cardiovascular Rate/Rhythm: regular rate and regular rhythm Vessels: normal peripheral pulses Extremities: no edema Gastrointestinal (Abdomen) Percussion/Palpation: abdomen soft; abdomen nontender Skin no rashes, warm and dry Neurologic no focal motor deficits Psychiatric A+Ox3, euthymic affect Discharge Data Allergies Allergy/AdvReac Type Severity Reaction Status Date / Time cyclobenzaprine AdvReac Mild constipatio Verified 01/31/21 20:19 n Consultations [facility] Ordered Studies CT ABD/pelvis IMPRESSION: 1. Acute pancreatitis. This is similar to the prior CT examination. 2. Right-sided nephrolithiasis. No hydronephrosis. 3. Mild thickening within the duodenum is likely reactive to the pancreatitis. 4. No evidence for bowel obstruction. Hospital Course (1) Acute pancreatitis: (2) Alcohol abuse: 55-year-old male with PMH HLD, nonallergic rhinitis, renal calculi, history of concussion, depression, alcoholism with 2 prior episodes of pancreatitis, who presented to the ED with reports of abdominal pain. Patient presented with 10 out of 10 epigastric abdominal pain with associated nausea. Prior to presenting to the ED, patient reports he was drinking [address] ABD/pelvis that showed signs of acute pancreatitis. Initial lipase was 900 however did spike to 10,000 the following day, on the day of discharge lipase was 497. Patient was treated with aggressive IVF, bowel rest, narcotic analgesia. He had no signs of alcohol withdrawal throughout his hospital stay and was started on thiamine and multivitamin. Diet was advanced on 02/03 and patient tolerated well. CBC and BMP on admission and throughout stay were unremarkable. GI was consulted who recommended outpatient follow-up with EUS. Complete alcohol abstinence was advised. Patient also developed an allergic conjunctivitis for which he was started on prednisolone and Naphcon-A drops. (3) Depression: -Continue Lexapro and Lamictal per home regimen. Total Time Total Time Spent Total Time Spent (In Minutes): 35 Discharge Plan Discharge Items Patient Disposition: Home - Self-Care Reason For Visit: Abdominal Pain Discharge Diagnosis: Pancreatitis due to Alcohol Activity: Resume your previous activity Non-emergency contact: Primary Care Provider Call non-emergency contact if: you have any medication questions, your symptoms worsen, your pain is not controlled and you have a fever Follow-up/Referrals: Brady Palafox MD [Primary Care Provider] - (Date & Time 02/09/2021 9:00 AM Provider Brady Palafox MD Department [facility] ) Diet: Heart Healthy Addtl Attending Provider Instructions: You were admitted to the hospital for pancreatitis (inflammation of the pancreas) due to alcohol use. You improved with stomach rest and IV fluids. The GI team evaluated you and recommends outpatient follow up and further testing (endoscopic ultrasound) - they will be in touch to arrange this. It is very important for you to completely abstain from alcohol to prevent further episodes of pancreatitis. Start taking a multivitamin and Vitamin B1 (thiamine) 100mg daily. For your itchy, watery eyes - you were started on eye drops. Prescriptions have been sent to your pharmacy. Continue all home medications as previously prescribed. Keep follow up appointments as scheduled. Pending Studies at Discharge: No Stand-Alone Forms: [facility], Smoking Cessation Medications and DC Order Prescriptions: New thiamine HCl (vitamin B1) [Vitamin B-1] 100 mg Tablet 100 mg PO QAM Qty: 30 RF: 0 prednisolone acetate 1 % Drops,Suspension 1 - 2 drp ophthalmic (eye) HS Qty: 5 RF: 0 Naphcon-A 0.025-0.3 % Drops 2 drp OPB Q6H PRN (Reason: eye irritation) Qty: 10 RF: 0 Certavite-Antioxidant 18-400 mg-mcg Tablet 1 tab PO QAM Qty: 30 RF: 0 Continued atorvastatin 20 mg Tablet 20 mg PO DAILY RF: 0 escitalopram oxalate [Lexapro] 20 mg tablet 20 mg PO DAILY RF: 0 lamotrigine 100 mg tablet 100 mg PO BID RF: 0 Discharge Orders: Discharge Order (Routine); Ordered 02/04/21 Ordered By: Hayley Moses/Other Patient Handouts: ED Alcohol Abuse Admission Data Admit Date/Time: 01/31/21 23:08 Attending Provider: Alfred Taylor Admit Provider: Kameron Weems Primary Care Provider: Brady Palafox Other Providers: Kameron Weems ; Juan Adams Other Interventions: Discharge Summary Assessment (RN) Last Done: 02/04/21 11:01 Supervising Physician Co-Signing Physician Notes I have seen and examined the patient and have discussed the case with the provider above. I agree with the assessment and plan as stated. 55 yo alcoholic with recurrent pancreatitis. Patient is tolerating diet with resolution of nausea/vomiting/epigastric pain. Patient counseled on the importance of cessation of drinking alcohol. Patient voiced understanding and was agreeable. Patient did not have any withdrawal system while he was here in the hospital for 4 days. On examination, as above with normal heart and lung exams. No epigastric tenderness. Upon discharge, patient to follow-up with his PCP within a week time and follow- up with your GI doctor as an outpatient.
== END 2021-02-04 11:27 | disposition home or self-care (01) ==
LOC: ED 17:43 → SUATTDRO 23:08 → 3E 23:08 → INTOOBSV 23:08 → 3E 02-01 00:01
DX: Z88.8 Allergy status to other drugs, medicaments and biological substances; E78.5 Hyperlipidemia, unspecified; K85.20 Alcohol induced acute pancreatitis without necrosis or infection; F32.A Depression, unspecified; F10.10 Alcohol abuse, uncomplicated

== ENCOUNTER 2021-08-18 16:19 | Observation (INO) ==
[2021-08-18 17:18] LABS: Basophils # (auto) 0.02 K/uL (0-0.2); Basophils % (auto) 0.2 %; Eosinophils % (auto) 1.2 %; Hematocrit (blood only) 44.4 % (42-52); Hemoglobin 15.4 g/dL (14.0-18.0); Immature Granulocytes # (auto) 0.05 K/uL (0.00-0.02); Immature Granulocytes % (auto) 0.6 %; Lymphocytes # (auto) 0.97 K/uL (1.2-3.4); Lymphocytes % (auto) 11.8 %; Mean Corpuscular Hemoglobin 32.1 pg (25-34); Mean Corpuscular Hgb Conc 34.7 g/dL (32-36); Mean Corpuscular Volume 92.5 fL (80-100); Mean Platelet Volume 9.7 fL (7.4-10.4); Monocytes # (auto) 0.86 K/uL (0.11-0.59); Monocytes % (auto) 10.4 %; Neutrophils # (auto) 6.25 K/uL (1.4-6.5); Neutrophils % (auto) 75.8 %; Platelet Count 157 K/uL (130-400); RDW Coefficient of Variation 12.2 % (11.5-14.5); RDW Standard Deviation 41.6 fL (36.4-46.3); White Blood Count 8.25 K/uL (4.8-10.8)
[2021-08-18 17:54] LABS: Albumin Level 4.8 gm/dl (3.4-5.0); BUN Creatinine Ratio 9.5 (10-20); Bilirubin,Total 1.3 mg/dl (0.2-1.0); Calcium 9.5 mg/dl (8.5-10.1); Creatinine Clr Calc Pharmacy 101.1 ml/min; Est GFR (African American) 92.2 ml/min; Est GFR (Non-African American) 79.5 ml/min; Globulin 2.4 gm/dl (2.5-4.0); Potassium 3.8 mmol/L (3.5-5.1); Total Protein 7.2 gm/dl (6.0-8.3)
[2021-08-18] MEDS ORDERED: ONDANSETRON INJ 2 MG/ML 2 ML VIAL IV STA (18:46)
[2021-08-18] MEDS ORDERED: HYDROmorphone INJ 0.5 MG/0.5 ML SYR IV STA ×3 (18:46→22:13)
--- NOTE | 2021-08-18 19:23 | Emergency Department Note ---
Impression & Plan Acute pancreatitis, Abdominal pain ED Provider Note NAME: JACKIE SORTO AGE: 56 SEX: M : 1965 ARRIVES VIA: Walk-In INFORMANT: Patient, ED PROVIDER(S): Surendra Cronin MD Chief Complaint: Abdominal pain HPI: Patient presents due to concern for right upper quadrant pain which he states radiates to his right flank and back area. Patient states that it is sharp. The patient states that this began on Tuesday evening but seem to worsen this morning. The patient did try [id number] treatments but this did not improve his symptoms. Patient denies any chest pains or shortness of breath. Patient does have a prior history of kidney stones but states this does not feel similar to before. The patient denies any exacerbating or precipitating factors patient still has his gallbladder. Patient denies any falls or trauma. Patient denies any alcohol or tobacco use. ROS: See HPI for pertinent positives and negatives. A total of 10 systems were reviewed and otherwise negative. Past medical history: See below Surgical history: See below Social history: See below Physical Exam: GENERAL: Tearful, nontoxic, wearing a mask EYE EXAM: Normal conjunctiva. PERRL, no anisocoria and EOM's grossly intact w/o pain. NECK: Supple, no nuchal rigidity, no adenopathy, non-tender. No signs of meningismus. LUNGS: Clear to auscultation. Normal chest wall mechanics. HEART: NSR, no MRG. ABDOMEN: Abdomen soft, right upper quadrant without epigastric pain, no pain to the lower chest wall, normo-active bowel sounds, no masses, no rebound or guarding. BACK: No CVA TTP. SKIN: No rashes and no bruising. UPPER EXTREMITIES: Upper extremities are grossly normal. LOWER EXTREMITIES: Grossly normal, no edema. Well-perfused bilaterally. NEURO EXAM: A&O x3, cranial nerves II-XII grossly intact, normal speech, moves all 4 extremities on command w/o issue. Good finger to nose, no drift, no sensory deficits. Differential diagnoses: Appendicitis, testicular torsion, infections, diverticulitis, UTI, obstruction, mesenteric ischemia, aortic pathology, inflammatory bowel disease, renal colic, PUD, pancreatitis, biliary pathology, hernia, volvulus, constipation, as well as other pathologies. Course: Patient was seen and evaluated the bedside. Full history physical exam was performed. Imaging Studies: See Below Cardiac monitoring: An order was placed for continuous cardiac monitoring. The monitor shows a rate of 82 with sinus rhythm. MDM: Patient presented with concern for abdominal pain. Blood work was obtained along with CT abdomen pelvis and the patient was treated with IV pain medicatio n. Blood work shows normal white count H&H and platelet count. The patient's kidney function is unremarkable. Mild elevation in bilirubin which has been intermittently elevated in the past. Lipase is elevated. Patient does have a known history of chronic pancreatitis. CT does show pancreatitis. The patient did have worsening pain and was given a repeat dose of pain medication. Upon subsequent reassessment the patient did have some mild improvement but after discussing with the patient follow-up versus inpatient treatment for pain control the patient would prefer inpatient treatment for pain control at this time. I did speak the on-call hospitalist Dr. Banerjee with [facility]. Patient was admitted to the medicine service. Past Med/Surg History Medical History Acute pancreatitis Depression Fuchs' corneal dystrophy History of multiple concussions HLD (hyperlipidemia) Surgical History No significant past surgical history S/P hernia repair S/P shoulder surgery Status post corneal transplant Family History Mother Breast cancer Fuchs' corneal dystrophy Sister Breast cancer Social History Smoking Status: Never smoker Tobacco Type: Cigarettes Second Hand Exposure: No; Hx Alcohol Use: Yes Alcohol type: beer Hx Substance Use: Yes Last Used Substance: Unknown Last Used Substance Other:: marijuana years ago Preferred Language: Frisian Communication Ability: Effective International Bank Manager Required: No Beliefs That Will Affect Care: None Current Living Situation: Spouse Feels Safe at Home: Yes Assistive Devices: None Allergies Allergies Allergy/AdvReac Type Severity Reaction Status Date / Time cyclobenzaprine AdvReac Intermediate constipatio Verified 08/18/21 18:42 n Home Meds Home Medications Medication Instructions Recorded Confirmed atorvastatin 20 mg tablet 20 mg PO QPM 12/07/19 08/18/21 escitalopram oxalate 20 mg tablet 20 mg PO DAILY 12/07/19 08/18/21 (Lexapro) lamotrigine 100 mg tablet 100 mg PO BID 01/31/21 08/18/21 Previous Rx's Medication Instructions Recorded naphazoline 0.025 %-pheniramine 2 drp OPB Q6H PRN #10 ml 02/04/21 0.3 % eye drops (Naphcon-A) prednisolone acetate 1 % eye 1 - 2 drp OPHTHALMIC (EYE) HS #5 ml 02/04/21 drops,suspension Results & Data (ED) Vital Signs Vital Signs - 24 hr 08/18/21 16:19 08/18/21 17:13 08/18/21 17:20 Temperature 36.7 C Temperature Source Temporal Artery Scan Pulse Rate 79 71 Pulse Rate from SpO2 Sensor 75 75 Pulse Rhythm Regular Respiratory Rate 16 14 17 Respiratory Effort / Characteristics Non-Labored Respiratory Depth Normal Blood Pressure 174/94 H Blood Pressure Mean 120 Pulse Oximetry 97 92 100 Oxygen Delivery Method Room Air Sepsis Recent Fever Within 48 Hours No Sepsis New/Unexplained Change in Mental Status No Sepsis Action Taken by Nursing No Action Required 08/18/21 20:19 Temperature Temperature Source Pulse Rate Pulse Rate from SpO2 Sensor Pulse Rhythm Respiratory Rate Respiratory Effort / Characteristics Non-Labored Spontaneous Respiratory Depth Normal Blood Pressure Blood Pressure Mean Pulse Oximetry Oxygen Delivery Method Sepsis Recent Fever Within 48 Hours Sepsis New/Unexplained Change in Mental Status Sepsis Action Taken by Skilled Nursing Medications Current Medication List: was personally reviewed by me Laboratory Data Attestation: I reviewed the patient's lab results. Result diagrams: 08/18/21 17:00 08/18/21 17:00 Lab Results 08/18/21 08/18/21 08/18/21 Range/Units 17:00 17:00 20:45 WBC 8.25 (4.8-10.8) K/uL RBC 4.80 (4.7-6.1) M/uL Hgb 15.4 (14.0-18.0) g/dL Hct 44.4 (42-52) % MCV 92.5 (80-100) fL MCH 32.1 (25-34) pg MCHC 34.7 (32-36) g/dL RDW Std Deviation 41.6 (36.4-46.3) fL RDW Coeff of Reginald 12.2 (11.5-14.5) % Plt Count 157 (130-400) K/uL MPV 9.7 (7.4-10.4) fL Immature Gran % (Auto) 0.6 % Neut % (Auto) 75.8 % Lymph % (Auto) 11.8 % [place] % (Auto) 10.4 % Eos % (Auto) 1.2 % Baso % (Auto) 0.2 % Neut # (Auto) 6.25 (1.4-6.5) K/uL Lymph # (Auto) 0.97 L (1.2-3.4) K/uL [place] # (Auto) 0.86 H (0.11-0.59) K/uL Eos # (Auto) 0.10 (0-0.5) K/uL Baso # (Auto) 0.02 (0-0.2) K/uL Immature Gran # (Auto) 0.05 H (0.00-0.02) K/uL Sodium 134 L (136-145) mmol/L Potassium 3.8 (3.5-5.1) mmol/L Chloride 101 (98-107) mmol/L Carbon Dioxide 21 (21-32) mmol/L Anion Gap 12 H (3-11) BUN 10 (6-23) mg/dl Creatinine 1.05 (0.6-1.4) mg/dl Est Cr Clr Drug Dosing 101.1 ml/min Est GFR ( Amer) 92.2 ml/min Est GFR (Non-Af Amer) 79.5 ml/min BUN/Creatinine Ratio 9.5 L (10-20) Glucose 103 H (70-99(Fasting)) mg/dl Calcium 9.5 (8.5-10.1) mg/dl Total Bilirubin 1.3 H (0.2-1.0) mg/dl AST 38 (13-39) U/L ALT 45 (7-52) U/L Alkaline Phosphatase 90 (34-104) U/L Total Protein 7.2 (6.0-8.3) gm/dl Albumin 4.8 (3.4-5.0) gm/dl Globulin 2.4 L (2.5-4.0) gm/dl Albumin/Globulin Ratio 2.0 (0.9-2) Lipase 114 H (11-82) U/L Urine Color Dark Yellow Urine Appearance Clear (Clear) Urine pH 5.5 (4.5-7.5) Ur Specific [place] 1.031 H (1.000-1.030) Urine Protein 1+ H (Negative) Urine Glucose (UA) Negative (Negative) Urine Ketones 3+ H (Negative) Urine Blood Negative (Negative) Urine Nitrite Negative (Negative) Urine Bilirubin 1+ H (Negative) Urine Urobilinogen Negative (Negative) Ur Leukocyte Esterase Negative (Negative) Urine WBC (Auto) 1-5 (0-5) /hpf Urine RBC (Auto) 0-4 (0-4) /hpf U Hyaline Cast (Auto) 5-10 H (0-5) /lpf U Epithel Cells (Auto) 20-30 H (0-5) /lpf Urine Bacteria (Auto) Negative (Negative) SARS-CoV-2, RNA, NAAT (NEGATIVE) 08/18/21 Range/Units 21:25 WBC (4.8-10.8) K/uL RBC (4.7-6.1) M/uL Hgb (14.0-18.0) g/dL Hct (42-52) % MCV (80-100) fL MCH (25-34) pg MCHC (32-36) g/dL RDW Std Deviation (36.4-46.3) fL RDW Coeff of Reginald (11.5-14.5) % Plt Count (130-400) K/uL MPV (7.4-10.4) fL Immature Gran % (Auto) % Neut % (Auto) % Lymph % (Auto) % [place] % (Auto) % Eos % (Auto) % Baso % (Auto) % Neut # (Auto) (1.4-6.5) K/uL Lymph # (Auto) (1.2-3.4) K/uL [place] # (Auto) (0.11-0.59) K/uL Eos # (Auto) (0-0.5) K/uL Baso # (Auto) (0-0.2) K/uL Immature Gran # (Auto) (0.00-0.02) K/uL Sodium (136-145) mmol/L Potassium (3.5-5.1) mmol/L Chloride (98-107) mmol/L Carbon Dioxide (21-32) mmol/L Anion Gap (3-11) BUN (6-23) mg/dl Creatinine (0.6-1.4) mg/dl Est Cr Clr Drug Dosing ml/min Est GFR ( Amer) ml/min Est GFR (Non-Af Amer) ml/min BUN/Creatinine Ratio (10-20) Glucose (70-99(Fasting)) mg/dl Calcium (8.5-10.1) mg/dl Total Bilirubin (0.2-1.0) mg/dl AST (13-39) U/L ALT (7-52) U/L Alkaline Phosphatase (34-104) U/L Total Protein (6.0-8.3) gm/dl Albumin (3.4-5.0) gm/dl Globulin (2.5-4.0) gm/dl Albumin/Globulin Ratio (0.9-2) Lipase (11-82) U/L Urine Color Urine Appearance (Clear) Urine pH (4.5-7.5) Ur Specific [place] (1.000-1.030) Urine Protein (Negative) Urine Glucose (UA) (Negative) Urine Ketones (Negative) Urine Blood (Negative) Urine Nitrite (Negative) Urine Bilirubin (Negative) Urine Urobilinogen (Negative) Ur Leukocyte Esterase (Negative) Urine WBC (Auto) (0-5) /hpf Urine RBC (Auto) (0-4) /hpf U Hyaline Cast (Auto) (0-5) /lpf U Epithel Cells (Auto) (0-5) /lpf Urine Bacteria (Auto) (Negative) SARS-CoV-2, RNA, NAAT NEGATIVE (NEGATIVE) Administered Medications Discontinued Medications Hydromorphone HCl (Hydromorphone Inj 0.5 Mg/0.5 Ml Syr) 0.5 mg IV NOW STA Stop: 08/18/21 18:47 Last Admin: 08/18/21 19:08 Dose: 0.5 mg Documented by: [id number] Hydromorphone HCl (Hydromorphone Inj 0.5 Mg/0.5 Ml Syr) 0.5 mg IV NOW STA Stop: 08/18/21 20:22 Last Admin: 08/18/21 20:40 Dose: 0.5 mg Documented by: [id number] Hydromorphone HCl (Hydromorphone Inj 0.5 Mg/0.5 Ml Syr) 0.5 mg IV NOW STA Stop: 08/18/21 22:14 Last Admin: 08/18/21 22:23 Dose: 0.5 mg Documented by: [id number] Ioversol (Optiray 320 100ml) 93 ml IV ONCE ONE Stop: 08/18/21 19:40 Last Admin: 08/18/21 19:42 Dose: 93 ml Documented by: [id number] Ondansetron HCl (Ondansetron Inj 2 Mg/Ml 2 Ml Vial) 4 mg IV NOW STA Stop: 08/18/21 18:47 Last Admin: 08/18/21 19:08 Dose: 4 mg Documented by: [id number] Imaging Data Radiologist's Impression: Abdomen/Pelvis CT 08/18/21 18:[address] WITH IV CONTRAST CT DOSE: 997.21 mGy.cm HISTORY: Right upper quadrant pain. History of pancreatitis. TECHNIQUE: Multiaxial CT images of the abdomen and pelvis were performed following the use of intravenous contrast. A dose lowering technique was utiliz ed adhering to the principles of ALARA. COMPARISON STUDY: Abdomen and pelvis CT 01/31/2021. FINDINGS: The lung bases are clear. No pneumoperitoneum. No pneumatosis. No fractures within the visualized osseous structures. Mild hepatic steatosis. The gallbladder, spleen, and adrenal glands are unremarkable. The main portal vein is patent. Normal caliber abdominal aorta. No retroperitoneal lymphadenopathy. Mild bladder wall thickening which is likely due to underdistention. No pelvic free fluid or pelvic lymphadenopathy. No bowel wall thickening or obstruction. Normal appendix. There is a 4 mm stone within the lower pole the right kidney. There are a few punctate stones within the left kidney. A 6 mm hypodense lesion within the left kidney is technically too small to characterize but favors a cyst. Mild bilateral perinephric edema which is likely chronic. Mild peripancreatic edema/inflammatory change surrounding the pancreatic head consis tent with acute pancreatitis. No evidence for necrosis or peripancreatic fluid collections at this time. Mild thickening of the adjacent duodenum is likely reactive. IMPRESSION: 1. Mild acute pancreatitis. This is similar to the prior examination. 2. Bilateral nephrolithiasis. No hydronephrosis. 3. Hepatic steatosis. ACT 112: Negative or not required by law. Electronically signed by: Jayesh Mandujano M.D. 08/18/2021 7:50 PM Discharge Plan Visit Data Chief Complaint: Abdominal Pain Stated Complaint: SEVERE ABDOMINAL PAIN ED Provider: Surendra Cronin Discharge Problem: Acute pancreatitis, Abdominal pain Patient Disposition: Admitted As Inpatient Forms Stand Alone Forms: My [facility] Prescriptions Prescriptions: No Action atorvastatin 20 mg Tablet 20 mg PO QPM RF: 0 escitalopram oxalate [Lexapro] 20 mg tablet 20 mg PO DAILY RF: 0 lamotrigine 100 mg tablet 100 mg PO BID RF: 0 prednisolone acetate 1 % Drops,Suspension 1 - 2 drp ophthalmic (eye) HS Qty: 5 RF: 0 Naphcon-A 0.025-0.3 % Drops 2 drp OPB Q6H PRN (Reason: eye irritation) Qty: 10 RF: 0 Referrals Referrals: Brady Palafox MD [Primary Care Provider] -
[2021-08-18] MEDS ORDERED: OPTIRAY 320 100ml IV ONE (19:39)
--- NOTE | 2021-08-18 19:52 | CT Scan Report ---
ABDOMEN AND PELVIS CT WITH IV CONTRAST CT DOSE: 997.21 mGy.cm HISTORY: Right upper quadrant pain. History of pancreatitis. TECHNIQUE: Multiaxial CT images of the abdomen and pelvis were performed following the use of intrave nous contrast. A dose lowering technique was utilized adhering to the principles of ALARA. COMPARISON STUDY: Abdomen and pelvis CT 01/31/2021. FINDINGS: The lung bases are clear. No pneumoperitoneum. No pneumatosis. No fractures within the visu alized osseous structures. Mild hepatic steatosis. The gallbladder, spleen, and adrenal glands are un remarkable. The main portal vein is patent. Normal caliber abdominal aorta. No retroperitoneal lympha denopathy. Mild bladder wall thickening which is likely due to underdistention. No pelvic free fluid or pelvic lymphadenopathy. No bowel wall thickening or obstruction. Normal appendix. There is a 4 mm stone within the lower pole the right kidney. There are a few punctate stones within the left kidney. A 6 mm hypodense lesion within the left kidney is technically too small to characterize but favors a cyst. Mild bilateral perinephric edema which is likely chronic. Mild peripancreatic edema/inflammato ry change surrounding the pancreatic head consistent with acute pancreatitis. No evidence for necrosi s or peripancreatic fluid collections at this time. Mild thickening of the adjacent duodenum is likel y reactive. IMPRESSION: 1. Mild acute pancreatitis. This is similar to the prior examination. 2. Bilateral nephrolithiasis. No hydronephrosis. 3. Hepatic steatosis. ACT 112: Negative or not required by law. Electronically signed by: Jayesh Mandujano M.D. 08/18/2021 7:50 PM
[2021-08-18 21:32] LABS: Appearance Urine Clear (Clear); Bacteria Urine Automated Negative (Negative); Blood Urine Negative (Negative); Color Urine Dark Yellow; Epithelial Cell Urine Auto 20-30 /lpf (0-5); Glucose Urine UA Negative (Negative); Ketones Urine 3+ (Negative); Leukocyte Esterase Urine Negative (Negative); Nitrite Urine Negative (Negative); Protein Urine 1+ (Negative); RBC Urine Automated 0-4 /hpf (0-4); Specific Gravity Urine 1.031 (1.000-1.030); Urobilinogen Urine Negative (Negative); pH Urine 5.5 (4.5-7.5)
[2021-08-18 21:37] LABS: Bilirubin Urine 1+ (Negative)
--- NOTE | 2021-08-18 21:46 | History & Physical Report ---
Date of Service August 18, 2021 Assessment & Plan (1) Abdominal pain: Plan: Suspect acute pancreatitis 2/2 alcohol use. There is no evidence of gallstones on imaging and this has been a recurrent issue for him over the past 3-5 years. He has tried to quit in the past unsuccessfully. Cont with LR at 200cc/hr, antiemetics and pain meds as needed. NPO for now. Repeat abdominal exam in am and trend lipase. (2) Depression: Plan: chronic, stable. Cont lexapro and lamotrigine per home regimen. (3) Alcohol abuse: Plan: chronic, still using at least 6 beers daily. AWSS with PRN PO Ativan as needed for symptoms of withdrawal which he denies in the past. Gave banana bag and dailu thiamine and folic acid. (4) Hepatic steatosis: Plan: seen on imaging and discussed the importance of diet and exercise to reverse this. He verbalized understanding. (5) Bilateral nephrolithiasis: Plan: chronic, doesn't appear to be related to the pain. (6) DVT prophylaxis: Plan: Lovenox Full Code Dispo-floor, to home once eating well and pain has resolved. Gale Banerjee DO [facility] Hospitalist History of Present Illness Chief Complaint: abdominal pain Primary Care Provider: Brady Palafox MD 56 yo M presents with abdominal pain, has h/o recurrent pancreatitis in the past. Still has his gallbladder. Alcoholic reports 6 beers daily, last drink was on Tuesday. Pain started Tuesday night and he felt constant pain all day Tuesday but it was bearable. Describes the pain as severe and sharp, located mainly in the RUQ area, and radiates bilaterally in upper abdomen around to the back. He is concerned, reporting this to feel differently than prior episodes in the past. Denies vomiting. Took Ibuprofen but it was unsuccessful for controlling his pain. Denies blood per rectum. One episode of loose stool and then has had no BM. Has a h/o kidney stones but this feels different. Denies fevers, chills. Ate a "greasy" meal last night and woke up with worse pain this morning. Pain became intolerable and he came in tonight. Some improvement with Dilaudid in the ER today. Reports not eating much today and had a couple cups of coffee and some water. ROS reveals no fevers, chills, chest pain, SOB, blood per rectum, hematuria. I discussed with him that he had kidney stones seen on CT, and he reports this doesn't feel like a kidney stone from the past. Allergies Allergy/AdvReac Type Severity Reaction Status Date / Time cyclobenzaprine AdvReac Intermediate constipatio Verified 08/18/21 18:42 n Home Medications Medication Instructions Recorded Confirmed Type atorvastatin 20 mg tablet 20 mg PO QPM 12/07/19 08/19/21 History escitalopram oxalate 20 mg tablet 20 mg PO DAILY 12/07/19 08/19/21 History (Lexapro) lamotrigine 100 mg tablet 100 mg PO BID 01/31/21 08/19/21 History naphazoline 0.025 %-pheniramine 2 drp OPB Q6H PRN #10 ml 02/04/21 08/19/21 Rx 0.3 % eye drops (Naphcon-A) prednisolone acetate 1 % eye 1 - 2 drp OPHTHALMIC (EYE) HS #5 ml 02/04/21 08/19/21 Rx drops,suspension Past Med/Surg History Medical History Acute pancreatitis Depression Fuchs' corneal dystrophy History of multiple concussions HLD (hyperlipidemia) Surgical History No significant past surgical history S/P hernia repair S/P shoulder surgery Status post corneal transplant Family History Mother Breast cancer Fuchs' corneal dystrophy Sister Breast cancer Social History Smoking Status: Never smoker Tobacco Type: Cigarettes Second Hand Exposure: No; Hx Alcohol Use: Yes Alcohol type: beer Hx Substance Use: Yes Last Used Substance: Unknown Last Used Substance Other:: marijuana years ago Preferred Language: Icelandic Communication Ability: Effective Cabin Supervisor Required: No Beliefs That Will Affect Care: None Current Living Situation: Spouse Feels Safe at Home: Yes Assistive Devices: None Review of Systems Review of Systems: All systems were reviewed and negative except as indicated above. Physical Exam Physical Exam: CONSTITUTIONAL: WNWD, vitals as above, generally well- appearing EYES: normal conjunctivae, no scleral icterus ENT: external ear and nose normal, oropharynx clear, MMM NECK: trachea midline RESPIRATORY: clear to auscultation bilaterally, no crackles, rales or wheezes, normal respiratory effort CARDIOVASCULAR: regular rate and rhythm, S1 and 2 heard without murmurs, gallops or rubs, no JVD, no peripheral edema CHEST: inspection of chest was normal GASTROINTESTINAL: soft, nontender, ND, no guarding MUSCULOSKELETAL: strength 5/5 throughout, head is normocephalic and atraumatic SKIN: warm and dry NEUROLOGIC: CN 2-12 grossly intact, no sensory deficit, normal cognition, normal speech, no tremor, no gross focal deficits. PSYCHIATRIC: alert cooperative and oriented to person, place and time. Results & Data Results & Data ([facility]) Vital Signs (Past 12 Hours) Vital Signs Temp Pulse Resp BP Pulse Ox 08/18/21 17:20 17 100 08/18/21 17:13 71 14 92 08/18/21 16:19 36.7 C 79 16 174/94 H 97 Laboratory Results Short CBC 08/18/21 Range/Units 17:00 WBC 8.25 (4.8-10.8) K/uL Hgb 15.4 (14.0-18.0) g/dL Hct 44.4 (42-52) % Plt Count 157 (130-400) K/uL BMP 08/18/21 17:00 Sodium 134 L Potassium 3.8 Chloride 101 Carbon Dioxide 21 BUN 10 Creatinine 1.05 Glucose 103 H Calcium 9.5 Liver Function 08/18/21 Range/Units 17:00 Total Bilirubin 1.3 H (0.2-1.0) mg/dl AST 38 (13-39) U/L ALT 45 (7-52) U/L Alkaline Phosphatase 90 (34-104) U/L Albumin 4.8 (3.4-5.0) gm/dl Urine 08/18/21 Range/Units 20:45 Urine Color Dark Yellow Urine Appearance Clear (Clear) Urine pH 5.5 (4.5-7.5) Ur Specific [place] 1.031 H (1.000-1.030) Urine Protein 1+ H (Negative) Urine Glucose (UA) Negative (Negative) Diagnostic Findings Abdomen/Pelvis CT 08/18/21 18:[address] WITH IV CONTRAST CT DOSE: 997.21 mGy.cm HISTORY: Right upper quadrant pain. History of pancreatitis. TECHNIQUE: Multiaxial CT images of the abdomen and pelvis were performed following the use of intravenous contrast. A dose lowering technique was utilized adhering to the principles of ALARA. COMPARISON STUDY: Abdomen and pelvis CT 01/31/2021. FINDINGS: The lung bases are clear. No pneumoperitoneum. No pneumatosis. No fractures within the visualized osseous structures. Mild hepatic steatosis. The gallbladder, spleen, and adrenal glands are unremarkable. The main portal vein is patent. Normal caliber abdominal aorta. No retroperitoneal lymphadenopathy. Mild bladder wall thickening which is likely due to underdistention. No pelvic free fluid or pelvic lymphadenopathy. No bowel wall thickening or obstruction. Normal appendix. There is a 4 mm stone within the lower pole the right kidney. There are a few punctate stones within the left kidney. A 6 mm hypodense lesion within the left kidney is technically too small to characterize but favors a cyst. Mild bilateral perinephric edema which is likely chronic. Mild peripancre atic edema/inflammatory change surrounding the pancreatic head consistent with acute pancreatitis. No evidence for necrosis or peripancreatic fluid collections at this time. Mild thickening of the adjacent duodenum is likely reactive. IMPRESSION: 1. Mild acute pancreatitis. This is similar to the prior examination. 2. Bilateral nephrolithiasis. No hydronephrosis. 3. Hepatic steatosis. ACT 112: Negative or not required by law. Electronically signed by: Jayesh Mandujano M.D. 08/18/2021 7:50 PM Code Status & VTE Plan VTE Prophylaxis Plan VTE Prophylaxis will be ordered: Yes
[2021-08-18] MEDS ORDERED: ONDANSETRON INJ 2 MG/ML 2 ML VIAL IV PRN (22:28)
[2021-08-19] MEDS ORDERED: POLYETHYLENE (MIRALAX) 17 GM PACK PO PRN (00:41)
[2021-08-19] MEDS ORDERED: LORazepam 1 MG TAB PO PRN (00:41)
[2021-08-19] MEDS ORDERED: MULTI-VITAMIN INFUSION 10 ML, THIAMINE HCL 100 MG, FOLIC ACID 1 MG in SODIUM CHLORIDE 0... IV ONE (01:00)
[2021-08-19] MEDS: THIAMINE HCL 100 MG TAB PO SCH ×2 (01:25→09:40)
[2021-08-19] MEDS: FOLIC ACID 1 MG TAB PO SCH ×2 (01:25→09:40)
[2021-08-19] MEDS: DOCUSATE SODIUM 100 MG CAP PO SCH ×3 (01:25→22:58)
[2021-08-19] MEDS: HYDROmorphone INJ 0.5 MG/0.5 ML SYR IV PRN ×5 (01:25→20:39)
[2021-08-19] MEDS: oxyCODONE HCL IR 5 MG TAB (IMMEDIATE RELEASE) PO PRN ×5 (02:45→22:58)
[2021-08-19] MEDS: LACTATED RINGER'S 1,000 ML IV SCH ×5 (02:51→22:56)
[2021-08-19 07:57] LABS: Hematocrit (blood only) 40.7 % (42-52); Hemoglobin 13.9 g/dL (14.0-18.0); Mean Corpuscular Hemoglobin 32.1 pg (25-34); Mean Corpuscular Hgb Conc 34.2 g/dL (32-36); Mean Platelet Volume 9.7 fL (7.4-10.4); Platelet Count 134 K/uL (130-400); RDW Coefficient of Variation 12.5 % (11.5-14.5); RDW Standard Deviation 43.3 fL (36.4-46.3); Red Blood Count 4.33 M/uL (4.7-6.1)
[2021-08-19 08:21] LABS: BUN Creatinine Ratio 8.7 (10-20); Calcium 8.7 mg/dl (8.5-10.1); Chol HDL Ratio 3.5 (0-5); Creatinine Clr Calc Pharmacy 116.3 ml/min; Est GFR (African American) 108.1 ml/min; Est GFR (Non-African American) 93.3 ml/min; Potassium 3.6 mmol/L (3.5-5.1)
[2021-08-19] MEDS: lamoTRIgine 100 MG TAB PO SCH ×2 (09:40→20:41)
[2021-08-19] MEDS: ESCITALOPRAM OXALATE 20 MG TAB PO SCH (09:40)
[2021-08-19] MEDS: ENOXAPARIN INJ 40 MG/0.4 ML SYR SQ SCH (09:40)
--- NOTE | 2021-08-19 16:32 | Hospitalist Progress Note ---
Date of Service August 19, 2021 Assessment & Plan (1) Abdominal pain: Plan: Recurrent pancreatitis Mostly 2/[address] abd no gall stones.ON LR at 200cc/hr, antiemetics and pain meds as needed. NPO for now. Continue to monitor Present on Admission?: Yes (2) Depression: Plan: chronic, stable. Cont home meds lexapro and lamotrigine. (3) Alcohol abuse: Plan: chronic, On AWSS with PRN PO Ativan as needed for symptoms of withdrawal . Seems doing ok continue to monitor On thiamine and folic acid Present on Admission?: Yes (4) Hepatic steatosis: Plan: Needs followup needs to quirt alcohol and follow healthy diet and exercise (5) Bilateral nephrolithiasis: Plan: chronic, (6) DVT prophylaxis: Plan: Lovenox Full Code Dispo-To be determined Admission and Anticipated Discharge Date Admission Date: August 18, 2021 Subjective Feels full in stomach pain is better with iv pain meds says pain is more at RUQ. has 5/10 headache no nausea has some dry cough no chest pain or sob Review of Systems Review of Systems: All systems reviewed & are unremarkable except as noted in Subjective Physical Exam Constitutional: WD/WN, vitals as above ENMT: external ear and nose normal, oropharynx normal Neck: trachea midline, no thyromegaly Respiratory: normal respiratory effort, lungs clear to auscultation Cardiovascular: RRR, no murmur, no edema Gastrointestinal (Abdomen): Soft Bowel sounds present, Mild RUQ tenderness, No guarding no distension Musculoskeletal: Extremities: extremities normal to inspection Neurologic: Speech is clear.No facial droop, Non foal Psychiatric: A+Ox3, euthymic affect Results & Data Results & Data ([facility]) Vital Signs (Past 12 Hours) Vital Signs Temp Pulse Pulse Resp BP Pulse Ox 08/19/21 15:38 84 08/19/21 15:02 37.6 C H 81 18 182/70 H 94 08/19/21 11:05 36.7 C 76 19 183/84 H 94 08/19/21 07:45 73 08/19/21 07:32 36.7 C 70 19 170/97 H 95
[2021-08-19] MEDS: ACETAMINOPHEN 325 MG TAB PO PRN (17:17)
[2021-08-19] MEDS: ATORVASTATIN 20 MG TAB PO SCH (20:41)
[2021-08-20] MEDS: ACETAMINOPHEN 325 MG TAB PO PRN ×2 (02:06→11:30)
[2021-08-20] MEDS: LACTATED RINGER'S 1,000 ML IV SCH ×5 (03:45→23:14)
[2021-08-20 07:55] LABS: Basophils # (auto) 0.03 K/uL (0-0.2); Basophils % (auto) 0.5 %; Eosinophils % (auto) 1.7 %; Hematocrit (blood only) 42.2 % (42-52); Hemoglobin 14.1 g/dL (14.0-18.0); Immature Granulocytes # (auto) 0.03 K/uL (0.00-0.02); Immature Granulocytes % (auto) 0.5 %; Lymphocytes % (auto) 18.2 %; Mean Corpuscular Hgb Conc 33.4 g/dL (32-36); Mean Corpuscular Volume 95.7 fL (80-100); Mean Platelet Volume 9.4 fL (7.4-10.4); Monocytes # (auto) 0.91 K/uL (0.11-0.59); Neutrophils # (auto) 3.88 K/uL (1.4-6.5); Neutrophils % (auto) 64.1 %; Platelet Count 119 K/uL (130-400); RDW Coefficient of Variation 12.3 % (11.5-14.5); RDW Standard Deviation 43.2 fL (36.4-46.3); Red Blood Count 4.41 M/uL (4.7-6.1); White Blood Count 6.05 K/uL (4.8-10.8)
[2021-08-20] MEDS: oxyCODONE HCL IR 5 MG TAB (IMMEDIATE RELEASE) PO PRN (08:00)
[2021-08-20 08:24] LABS: BUN Creatinine Ratio 6.3 (10-20); Creatinine Clr Calc Pharmacy 111.9 ml/min; Est GFR (African American) 102.7 ml/min; Est GFR (Non-African American) 88.6 ml/min; Magnesium 1.9 mg/dl (1.7-2.4); Potassium 3.6 mmol/L (3.5-5.1)
[2021-08-20] MEDS: ENOXAPARIN INJ 40 MG/0.4 ML SYR SQ SCH (09:31)
[2021-08-20] MEDS: FOLIC ACID 1 MG TAB PO SCH (09:31)
[2021-08-20] MEDS: THIAMINE HCL 100 MG TAB PO SCH (09:32)
[2021-08-20] MEDS: lamoTRIgine 100 MG TAB PO SCH ×2 (09:32→20:29)
[2021-08-20] MEDS: ESCITALOPRAM OXALATE 20 MG TAB PO SCH (09:32)
[2021-08-20] MEDS: DOCUSATE SODIUM 100 MG CAP PO SCH ×2 (09:33→20:31)
--- NOTE | 2021-08-20 10:26 | Electrocardiogram Report ---
Test Reason : Blood Pressure : / mmHG Vent. Rate : 069 BPM Atrial Rate : 069 BPM P-R Int : 136 ms QRS Dur : 098 ms QT Int : 396 ms P-R-T Axes : 048 038 056 degrees QTc Int : 424 ms Normal sinus rhythm Nonspecific ST abnormality Abnormal ECG When compared with ECG of 16-SEP-2020 10:56, No significant change was found Confirmed by Lg Downs ([id number]) on 08/20/2021 10:26:21 AM Referred By: REFERRED SELF Confirmed By:Lg Downs
--- NOTE | 2021-08-20 14:53 | Hospitalist Progress Note ---
Date of Service August 20, 2021 Assessment & Plan (1) Abdominal pain: Plan: Recurrent pancreatitis Mostly 2/[address] abd no gall stones.ON LR at 200cc/hr, antiemetics and pain meds as needed. pain improved tolerating clears. will advance diet to regular. Continue to monitor (2) Depression: Plan: chronic, stable. Cont home meds lexapro and lamotrigine. (3) Alcohol abuse: Plan: chronic, On AWSS with PRN PO Ativan as needed for symptoms of withdrawal . Seems doing ok continue to monitor On thiamine and folic acid (4) Hepatic steatosis: Plan: Needs followup needs to quirt alcohol and follow healthy diet and exercise (5) Bilateral nephrolithiasis: Plan: chronic, (6) DVT prophylaxis: Plan: Lovenox Full Code Dispo-Possible discharge in am. Admission and Anticipated Discharge Date Admission Date: August 18, 2021 Subjective resting comfortably last pain was last night tolerated clears fine want to try regular food feeling hungry no chest pain or sob has running nose and dry cough afebrile Review of Systems Review of Systems: All systems reviewed & are unremarkable except as noted in Subjective Physical Exam Constitutional: WD/WN, vitals as above Neck: trachea midline, no thyromegaly Respiratory: normal respiratory effort, lungs clear to auscultation Cardiovascular: RRR, no murmur, no edema Gastrointestinal (Abdomen): normal bowel sounds, soft, nontender, no hepatosplenomegaly Neurologic: no facial palsy, no dysarthria, moves extremities Psychiatric: A+Ox3, euthymic affect Results & Data Results & Data ([facility]) Vital Signs (Past 12 Hours) Vital Signs Temp Pulse Pulse Resp BP Pulse Ox 08/20/21 11:03 36.6 C 77 18 149/81 H 93 08/20/21 08:00 79 08/20/21 07:32 37 C 77 18 123/77 95 08/20/21 03:49 36.9 C 80 18 146/84 H 94
[2021-08-20] MEDS: ATORVASTATIN 20 MG TAB PO SCH (20:29)
[2021-08-20] MEDS ORDERED: prednisoLONE acetate 1% OP SUSP 5 ML BTL OPB SCH (21:00)
[2021-08-20] MEDS ORDERED: cloNIDine HCL 0.1 MG TAB PO ONE (21:30)
[2021-08-21] MEDS: LACTATED RINGER'S 1,000 ML IV SCH ×2 (04:34→09:36)
[2021-08-21] MEDS ORDERED: BENZONATATE 100 MG CAPSULE PO PRN (07:35)
[2021-08-21 08:24] LABS: Hematocrit (blood only) 39.7 % (42-52); Hemoglobin 13.7 g/dL (14.0-18.0); Mean Corpuscular Hemoglobin 31.9 pg (25-34); Mean Corpuscular Volume 92.3 fL (80-100); Mean Platelet Volume 9.3 fL (7.4-10.4); Platelet Count 125 K/uL (130-400); RDW Coefficient of Variation 12.2 % (11.5-14.5); RDW Standard Deviation 41.3 fL (36.4-46.3); White Blood Count 5.23 K/uL (4.8-10.8)
[2021-08-21] MEDS: THIAMINE HCL 100 MG TAB PO SCH (08:24)
[2021-08-21] MEDS: ESCITALOPRAM OXALATE 20 MG TAB PO SCH (08:24)
[2021-08-21] MEDS: lamoTRIgine 100 MG TAB PO SCH (08:24)
[2021-08-21] MEDS: FOLIC ACID 1 MG TAB PO SCH (08:24)
[2021-08-21] MEDS: ENOXAPARIN INJ 40 MG/0.4 ML SYR SQ SCH (08:25)
[2021-08-21] MEDS: DOCUSATE SODIUM 100 MG CAP PO SCH (08:26)
[2021-08-21 08:33] LABS: Mean Corpuscular Hgb Conc 34.5 g/dL (32-36)
[2021-08-21 08:48] LABS: BUN Creatinine Ratio 6.1 (10-20); Calcium 9.1 mg/dl (8.5-10.1); Creatinine Clr Calc Pharmacy 109.3 ml/min; Est GFR (African American) 100.2 ml/min; Est GFR (Non-African American) 86.4 ml/min; Potassium 3.4 mmol/L (3.5-5.1)
[2021-08-21] MEDS ORDERED: amLODIPine BESYLATE 5 MG TAB PO ONE (09:21)
--- NOTE | 2021-08-21 09:32 | Discharge Summary ---
Date of Service August 21, 2021 Admission HPI Per Admitting Provider 56 yo M presents with abdominal pain, has h/o recurrent pancreatitis in the past. Still has his gallbladder. Alcoholic reports 6 beers daily, last drink was on Tuesday. Pain started Tuesday night and he felt constant pain all day Tuesday but it was bearable. Describes the pain as severe and sharp, located mainly in the RUQ area, and radiates bilaterally in upper abdomen around to the back. He is concerned, reporting this to feel differently than prior episodes in the past. Denies vomiting. Took Ibuprofen but it was unsuccessful for controlling his pain. Denies blood per rectum. One episode of loose stool and then has had no BM. Has a h/o kidney stones but this feels different. Denies fevers, chills. Ate a "greasy" meal last night and woke up with worse pain this morning. Pain became intolerable and he came in tonight. Some improvement with Dilaudid in the ER today. Reports not eating much today and had a couple cups of coffee and some water. ROS reveals no fevers, chills, chest pain, SOB, blood per rectum, hematuria. I discussed with him that he had kidney stones seen on CT, and he reports this doesn't feel like a kidney stone from the past. Admission Exam Per Admitting Provider CONSTITUTIONAL: WNWD, vitals as above, generally well-appearing EYES: normal conjunctivae, no scleral icterus ENT: external ear and nose normal, oropharynx clear, MMM NECK: trachea midline RESPIRATORY: clear to auscultation bilaterally, no crackles, rales or wheezes, normal respiratory effort CARDIOVASCULAR: regular rate and rhythm, S1 and 2 heard without murmurs, gallops or rubs, no JVD, no peripheral edema CHEST: inspection of chest was normal GASTROINTESTINAL: soft, nontender, ND, no guarding MUSCULOSKELETAL: strength 5/5 throughout, head is normocephalic and atraumatic SKIN: warm and dry NEUROLOGIC: CN 2-12 grossly intact, no sensory deficit, normal cognition, normal speech, no tremor, no gross focal deficits. PSYCHIATRIC: alert cooperative and oriented to person, place and time. Principal Diagnosis Recurrent pancreatitis Hypertension Discharge Exam Constitutional + well hydrated and + obese; no acute distress Eyes PERRL, conjunctivae normal, anicteric sclerae ENMT external ear and nose normal, oropharynx normal Respiratory normal respiratory effort, lungs clear to auscultation Cardiovascular Rate/Rhythm: regular rate and regular rhythm S1 S2 Gastrointestinal (Abdomen) normal bowel sounds, soft, nontender, no hepatosplenomegaly Musculoskeletal no cyanosis or clubbing, extremities motor strength 5/5 Neurologic PERRL, EOMI, accommodation nl, no face palsy, no dysarthria Psychiatric A+Ox3, euthymic affect Discharge Data Allergies Allergy/AdvReac Type Severity Reaction Status Date / Time cyclobenzaprine AdvReac Intermediate constipatio Verified 08/18/21 18:42 n Consultations 08/18/21 21:38 ED Decision to Admit Stat Ordered Studies 08/18/21 18:45 CT abd pelvis IV con only Stat The lung bases are clear. No pneumoperitoneum. No pneumatosis. No fractures within the visualized osseous structures. Mild hepatic steatosis. The gallbladder, spleen, and adrenal glands are unremarkable. The main portal vein is patent. Normal caliber abdominal aorta. No retroperitoneal lymphadenopathy. Mild bladder wall thickening which is likely due to underdistention. No pelvic free fluid or pelvic lymphadenopathy. No bowel wall thickening or obstruction. Normal appendix. There is a 4 mm stone within the lower pole the right kidney. There are a few punctate stones within the left kidney. A 6 mm hypodense lesion within the left kidney is technically too small to characterize but favors a cyst. Mild bilateral perinephric edema which is likely chronic. Mild peripancreatic edema/inflammatory change surrounding the pancreatic head consistent with acute pancreatitis. No evidence for necrosis or peripancreatic fluid collections at this time. Mild thickening of the adjacent duodenum is likely reactive. IMPRESSION: 1. Mild acute pancreatitis. This is similar to the prior examination. 2. Bilateral nephrolithiasis. No hydronephrosis. 3. Hepatic steatosis. Hospital Course (1) Abdominal pain: (2) Depression: (3) Alcohol abuse: (4) Hepatic steatosis: (5) Bilateral nephrolithiasis: Patient presented with abdominal pain. Lipase was noted to be mildly elevated at 114. CT abdomen pelvis showed acute pancreatitis, bilateral nephro lithiasis without hydronephrosis. Also had hepatic steatosis Patient was started on IV fluids, n.p.o. and pain control. Pain resolved. Was started on diet and advance as tolerated. Patient tolerating regular diet at this time. During hospital stay, patient's blood pressure was elevated and remained elevated even after resolution of abdominal pain. Review of previous hospitalization also noted elevated blood pressure. Patient likely had hypertension but had not been diagnosed. Outpatient records showed normal BP during office visits. Will start amlodipine 5 mg daily for now. Patient to follow-up with PCP who will evaluate and continue management. Counseled patient about need to quit alcohol use Discussed CT findings including hepatic steatosis Total Time Total Time Spent Total Time Spent (In Minutes): 45 Total Time Includes: Examination of the Patient, Discharge Planning and Medication Reconciliation Discharge Plan Discharge Items Patient Disposition: Home - Self-Care Reason For Visit: ABDOMINAL PAIN Discharge Diagnosis: Recurrent pancreatitis Hypertension Activity: Resume your previous activity Non-emergency contact: Primary Care Provider Call non-emergency contact if: you have any medication questions Follow-up/Referrals: Brady Palafox MD [Primary Care Provider] - (Date & Time 08/27/2021 10:40 AM Provider Brady Palafox MD Department [facility] ) Diet: Heart Healthy Addtl Attending Provider Instructions: Mr Contreras. You came to the hospital for abdominal pain. You were managed for recurrent pancreatitis. Your pain is completely resolved. It is very important that you quit alcohol use completely as this can cause recurrent pancreatitis. You also have abnormalities in your liver which can result from alcohol use. Due to persistently elevated blood pressure, you were started on amlodipine. Your Primary Doctor will reassess this on follow up. It is very important that you follow up with your Primary Doctor. Pending Studies at Discharge: No Stand-Alone Forms: My [employer], Smoking Cessation Medications and DC Order Prescriptions: New thiamine HCl (vitamin B1) 100 mg Tablet 100 mg PO QAM Qty: 30 RF: 0 amlodipine [Norvasc] 5 mg Tablet 5 mg PO QAM Qty: 30 RF: 0 folic acid 1 mg Tablet 1 mg PO QAM Qty: 30 RF: 0 Continued atorvastatin 20 mg Tablet 20 mg PO QPM RF: 0 escitalopram oxalate [Lexapro] 20 mg tablet 20 mg PO DAILY RF: 0 lamotrigine 100 mg tablet 100 mg PO BID RF: 0 prednisolone acetate 1 % Drops,Suspension 1 - 2 drp ophthalmic (eye) HS Qty: 5 RF: 0 Naphcon-A 0.025-0.3 % Drops 2 drp OPB Q6H PRN (Reason: eye irritation) Qty: 10 RF: 0 Discharge Orders: Discharge Order (Routine); Ordered 08/21/21 Ordered By: Mirlande Aaron Admission Data Admit Date/Time: 08/20/21 18:30 Attending Provider: Mirlande Aaron I. Admit Provider: Gale Banerjee Primary Care Provider: Brady Palafox Other Providers: Gale Banerjee ; Kamerno Weems Other Interventions: Discharge Summary Assessment (RN) Last Done: 08/21/21 09:40
[2021-08-22] MEDS ORDERED: amLODIPine BESYLATE 5 MG TAB PO SCH (09:00)
== END 2021-08-21 10:35 | disposition home or self-care (01) ==
LOC: EDINP 16:19 → ED 16:19 → SUATTDRO 21:44 → 2W 08-19 02:32 → SUATTDRO 08-20 18:30